=== PATIENT | female | born 1970 | race Caucasian/White ===

== ENCOUNTER 2025-03-10 02:50 | Inpatient (IN) | payer OTHER, SELFPAY ==
[2025-03-10] VITALS (52 sets, daily range): BP systolic 102–168; BP diastolic 68–109; BMI 34.7; BMI 32.8
[2025-03-10] MEDS: NITROSTAT (SUBLINGUAL) 0.4 MG SL (00:37)
[2025-03-10] MEDS: LOW STRENGTH ASPIRIN 324 MG PO (00:37)
[2025-03-10 01:05] LABS: % Basophils 0.7 % (0-2); % Eosinophils 2.1 % (0-6); % Immature Granulocytes 0.3 % (0-0.5); % Lymphocytes 35.6 % (20.5-51.1); % Monocytes 7.4 % (1.7-9.3); % Neutrophils 53.9 % (42.2-75.2); Absolute Basophils 0.1 10^3/uL (0-0.2); Absolute Eosinophils 0.2 10^3/uL (0-0.7); Absolute Lymphocytes 2.6 10^3/uL (1.2-3.4); Absolute Monocytes 0.5 10^3/uL (0.1-0.6); Absolute Neutrophils 3.9 10^3/uL (1.4-6.5); Hematocrit 37.6 % (37.0-47.0); Hemoglobin 13.6 g/dL (12.0-16.0); Mean Corp Hgb Conc. 36.2 g/dL (33.0-37.0); Mean Corpuscular Hgb 29.9 pg (27.0-31.0); Mean Corpuscular Volume 82.6 fL (81.0-99.0); Nucleated Red Blood Cells % 0 %; Platelet Count 243 10^3/uL (130-400); Red Blood Cell Count 4.55 10^6/uL (4.20-5.40); Red Cell Dist. Width 12.6 % (11.5-14.5); White Blood Cell Count 7.3 10^3/uL (4.8-10.8)
[2025-03-10 01:12] LABS: INR 1.01; PT 13.8 Sec (11.4-14.6)
[2025-03-10 01:13] LABS: ALT (SGPT) 11 U/L (0-35); APTT 27.2 Sec (23.4-35.0); AST (SGOT) 21 U/L (14-36); Albumin 4.3 g/dl (3.5-5.0); Alkaline Phosphatase 44 U/L (38-126); Blood Urea Nitrogen 12 mg/dl (7-17); Calcium 9.8 mg/dl (8.4-10.2); Carbon Dioxide 26 mmol/L (22-30); Chloride 107 mmol/L (98-107); Glucose 94 mg/dl (70-99); Potassium 3.8 mmol/L (3.5-5.1); Sodium 143 mmol/L (135-145); Total Protein 6.7 g/dl (6.3-8.2); eGFR > 60.00
--- NOTE | 2025-03-10 01:45 | ED.GENMED ---
History of Present Illness
<Holly Goezt PA-C - Last Filed: 03/10/25 03:12>
General
Chief Complaint: Chest Pain
Source: patient
Exam Limitations: none
Time Seen by Provider: 03/10/25 00:18
History of Present Illness
History of Present Illness:
54yoF with a history of type 2 diabetes on unro presenting for evaluation of chest pain. Patient was packing this evening to get ready for an upcoming move to [place]. She finished packing and was sitting on the couch watching TV when she had
a sudden onset of substernal chest discomfort. She states it feels like something is sitting on her chest. She also reports left arm heaviness and a funny sensation in her arm. She denies any associated diaphoresis, nausea, shortness of breath.
No prior history of heart disease.
Past History
<Holly Goetz PA-C - Last Filed: 03/10/25 03:12>
Past History
ED Past Medical History: HTN, Hypercholesterolemia and IDDM
ED Past Surgical History: (X 1) and Tonsilectomy
Social History
Tobacco: Non-smoker
Alcohol: Occasional
Personal:
Living: with family
Phy Exam
<Holly Goetz PA-C - Last Filed: 03/10/25 03:12>
General Physical Exam
General Presentation: mild distress
General Skin: warm and dry
General Habitus: normal
General Mental: alert and anxious
ENT Exam
ENT Exam: normocephalic
Cardiovascular Exam
Cardiovascular Exam: regular rate/rhythm, no edema and no murmur
Pulmonary Exam
Pulmonary Exam: lungs clear, no respiratory distress, no rales, no crackles, no rhonchi and no wheezing
Neurological Exam
Neurological Exam: alert
Greg Coma Scale
Eye Opening: Spontaneous
Verbal Response: Oriented
Motor Response: Obeys Commands
GCS Total Score: 15
Skin Exam
Skin Exam: normal color and warm/dry
Psychiatric Exam
Psychiatric Exam: anxious
Scores
<Holly Goetz PA-C - Last Filed: 03/10/25 03:12>
Heart Score for Chest Pain Patients
STEMI patient?: No
History: Highly Suspicious
ECG: Significant ST-Depression
Age: >45 - <65 years
Risk Factors: 1 or 2 Risk Factors
Troponin: >1 - <3 x Normal Limit
Heart Score for Chest Pain Patients: 7
Heart Score Risk: 72.7 % MACE over next 6 weeks
Course
<Holly Goetz PA-C - Last Filed: 03/10/25 03:12>
Orders/Labs/Results
Orders:
Orders
03/09/25 23:57
EKG [Electrocardiogram (*1)] Urgent
Reason for Study: Chest Pain
EKG- Treatment ONCE
03/10/25 00:25
Cardiac Monitoring- Treatment ONCE
Aspirin Chewable [Low Strength Aspirin] 324 mg PO NOW STA
Nitroglycerin Sublingual [Nitrostat (Sublingual)] 0.4 mg SL NOW STA
03/10/25 00:37
Complete Blood Count/With Diff Urgent
Comprehensive Metabolic Panel Urgent
PTT Urgent
Prothrombin Time Urgent
Troponin I Urgent
03/10/25 00:47
EKG [Electrocardiogram (*1)] Urgent
Reason for Study: Tachycardia
EKG- Treatment ONCE
03/10/25 00:49
CR Chest Portable - 1 View Urgent
Comment:
Reason For Exam: CP
Reason Study Needs to be Portable: Unable to Transport
03/10/25 01:47
Nitroglycerin Ointment [Nitro-Bid] 0.5 inch TOPICAL NOW STA
03/10/25 02:07
Heparin 4,000 units IV NOW STA
Nitroglycerin 100 mg/250 ml [Nitroglycerin Premix] 100 mg in 250 ml IV NOW
Initial dose in mcg/min, then titrate:: 5
Titrate to keep:: Chest Pain Free
Titrate by mcg/min:: 5 mcg/min, may increase by 10 mcg/min if dose > 20 mcg/min
Frequency of titrations (minutes):: every 3-5 minutes
Maximum dose in mcg/min:: 200
Begin to taper infusion when:: Remained at goal for 2hrs
Taper by mcg/min:: 5 mcg/min
Frequency of taper (minutes) if patient maintains goal:: 30
Taper to off?: Yes
If infusion off & no longer maintaining goal:: Contact Provider
03/10/25 02:[address] Non Medication Order As Directed
Physician Order: PTT 6 hours after initial start of Heparin infusion
03/10/25 02:11
Admit/Transfer Patient As Directed
Co-Sign Provider:
Level of Care: Inpatient admission
Assign to:: IVU
Physician / Group: hospitalist
Diagnosis: nstemi
Reason for Hospitalization: nstemi
Expected length of stay greater than two midnights?: Yes
ELOS- Estimated Length of Stay in days: 2
I certify the patient meets the requirements for IP care: Yes
Code Status As Directed
Resuscitation Status: Full Code
PRN Pain Medication Management As Directed
May give lesser potent ordered pain med per pt: Yes
preference::
Protocol:: Medication orders for pain may be administered in a
manner that supports deferring to patient preference
when the pt is:
- Requesting an ordered lesser potent pain medication.
Least to most potent pain medications are defined
as: acetaminophen < NSAID < tramadol < opioids
(morphine, oxycodone, hydromorphone).
- Requesting a lesser dose of the same medication IF
ORDERED.
- Requesting a less intrusive route of administration
if both routes are prescribed by the provider (PO <
IV).
03/10/25 02:15
Heparin 24141 Units/250 ml 25,000 units in 250 ml IV PER PROTOCOL
Weight to be used for heparin protocol in kilograms (kg):: 93
Protocol:: Cardiac Tx/Acute Coronary
PTT Goal Range to be used:: PTT 73 to 111 seconds
Order type:: Initial
INITIAL Infusion Dose (UNITS/KG/hr) & then follow protocol:: 12 units/kg/hr
Infusion Dose in UNITS/hr & then follow protocol (UNITS/hr):: 1,000
INFUSION RATE in mL/hr & then follow protocol (mL/hr):: 10
PTT less than or equal to 64 seconds:: Increase rate by 200 units/hr (+ 2 mL/hr)
PTT 64.1 to 72.9 seconds:: Increase rate by 100 units/hr (+ 1 mL/hr)
PTT 73 to 111 seconds:: Target Range. No change in rate.
PTT 111.1 to 130.9 seconds:: Decrease rate by 100 units/hr (- 1 mL/hr)
PTT 131 to 199.9 seconds:: HOLD for 1 hr. Then decrease rate by 200 units/hr (- 2 mL/hr)
PTT greater than or equal to 200 seconds:: HOLD for 2 hrs & Notify Provider. Then decrease by 200 units/hr (-
2 mL/hr)
Lab follow-up:: Each change, PTT q6h until 2 consecutive are therapeutic. Then PTT
daily.
03/10/25 03:00
Flush (0.9% Sodium Chloride) [Flush (Nss)] See Dose Instructions IV PER PROTOCOL
Abnormal Lab Results
03/10/25
00:37
Troponin I 0.160 H* ng/ml
03/10/25 00:37
03/10/25 00:37
Vital Signs
Initial and Last Documented VS:
Initial Vital Signs
Pulse Resp BP Pulse Ox
85 20 168/103 100
03/10/25 00:07 03/10/25 00:07 03/10/25 00:07 03/10/25 00:07
Last Documented Vital Signs
Pulse Resp BP Pulse Ox
93 18 165/90 99
03/10/25 02:30 03/10/25 02:30 03/10/25 02:00 03/10/25 02:30
<Darshana Vincent, DO - Last Filed: 03/10/25 03:04>
Orders/Labs/Results
Orders:
Orders
03/09/25 23:57
EKG [Electrocardiogram (*1)] Urgent
Reason for Study: Chest Pain
EKG- Treatment ONCE
03/10/25 00:25
Cardiac Monitoring- Treatment ONCE
Aspirin Chewable [Low Strength Aspirin] 324 mg PO NOW STA
Nitroglycerin Sublingual [Nitrostat (Sublingual)] 0.4 mg SL NOW STA
03/10/25 00:37
Complete Blood Count/With Diff Urgent
Comprehensive Metabolic Panel Urgent
PTT Urgent
Prothrombin Time Urgent
Troponin I Urgent
03/10/25 00:47
EKG [Electrocardiogram (*1)] Urgent
Reason for Study: Tachycardia
EKG- Treatment ONCE
03/10/25 00:49
CR Chest Portable - 1 View Urgent
Comment:
Reason For Exam: CP
Reason Study Needs to be Portable: Unable to Transport
03/10/25 01:47
Nitroglycerin Ointment [Nitro-Bid] 0.5 inch TOPICAL NOW STA
03/10/25 02:07
Heparin 4,000 units IV NOW STA
Nitroglycerin 100 mg/250 ml [Nitroglycerin Premix] 100 mg in 250 ml IV NOW
Initial dose in mcg/min, then titrate:: 5
Titrate to keep:: Chest Pain Free
Titrate by mcg/min:: 5 mcg/min, may increase by 10 mcg/min if dose > 20 mcg/min
Frequency of titrations (minutes):: every 3-5 minutes
Maximum dose in mcg/min:: 200
Begin to taper infusion when:: Remained at goal for 2hrs
Taper by mcg/min:: 5 mcg/min
Frequency of taper (minutes) if patient maintains goal:: 30
Taper to off?: Yes
If infusion off & no longer maintaining goal:: Contact Provider
03/10/25 02:[address] Non Medication Order As Directed
Physician Order: PTT 6 hours after initial start of Heparin infusion
03/10/25 02:11
Admit/Transfer Patient As Directed
Co-Sign Provider:
Level of Care: Inpatient admission
Assign to:: IVU
Physician / Group: hospitalist
Diagnosis: nstemi
Reason for Hospitalization: nstemi
Expected length of stay greater than two midnights?: Yes
ELOS- Estimated Length of Stay in days: 2
I certify the patient meets the requirements for IP care: Yes
Code Status As Directed
Resuscitation Status: Full Code
PRN Pain Medication Management As Directed
May give lesser potent ordered pain med per pt: Yes
preference::
Protocol:: Medication orders for pain may be administered in a
manner that supports deferring to patient preference
when the pt is:
- Requesting an ordered lesser potent pain medication.
Least to most potent pain medications are defined
as: acetaminophen < NSAID < tramadol < opioids
(morphine, oxycodone, hydromorphone).
- Requesting a lesser dose of the same medication IF
ORDERED.
- Requesting a less intrusive route of administration
if both routes are prescribed by the provider (PO <
IV).
03/10/25 02:15
Heparin 20004 Units/250 ml 25,000 units in 250 ml IV PER PROTOCOL
Weight to be used for heparin protocol in kilograms (kg):: 93
Protocol:: Cardiac Tx/Acute Coronary
PTT Goal Range to be used:: PTT 73 to 111 seconds
Order type:: Initial
INITIAL Infusion Dose (UNITS/KG/hr) & then follow protocol:: 12 units/kg/hr
Infusion Dose in UNITS/hr & then follow protocol (UNITS/hr):: 1,000
INFUSION RATE in mL/hr & then follow protocol (mL/hr):: 10
PTT less than or equal to 64 seconds:: Increase rate by 200 units/hr (+ 2 mL/hr)
PTT 64.1 to 72.9 seconds:: Increase rate by 100 units/hr (+ 1 mL/hr)
PTT 73 to 111 seconds:: Target Range. No change in rate.
PTT 111.1 to 130.9 seconds:: Decrease rate by 100 units/hr (- 1 mL/hr)
PTT 131 to 199.9 seconds:: HOLD for 1 hr. Then decrease rate by 200 units/hr (- 2 mL/hr)
PTT greater than or equal to 200 seconds:: HOLD for 2 hrs & Notify Provider. Then decrease by 200 units/hr (-
2 mL/hr)
Lab follow-up:: Each change, PTT q6h until 2 consecutive are therapeutic. Then PTT
daily.
03/10/25 03:00
Flush (0.9% Sodium Chloride) [Flush (Nss)] See Dose Instructions IV PER PROTOCOL
Abnormal Lab Results
03/10/25
00:37
Troponin I 0.160 H* ng/ml
03/10/25 00:37
03/10/25 00:37
Vital Signs
Initial and Last Documented VS:
Initial Vital Signs
Pulse Resp BP Pulse Ox
85 20 168/103 100
03/10/25 00:07 03/10/25 00:07 03/10/25 00:07 03/10/25 00:07
Last Documented Vital Signs
Pulse Resp BP Pulse Ox
93 18 165/90 99
03/10/25 02:30 03/10/25 02:30 03/10/25 02:00 03/10/25 02:30
<Holly Goetz PA-C - Last Filed: 03/10/25 03:12>
MDM/Problems Addressed
Differential Diagnosis Includes:
54yoF here with central chest pressure and L arm heaviness that began 1 hour [employer]. Hx of T2DM and family history of CAD. She is mildly hypertensive with otherwise stable vital signs. She is anxious on exam. Differential diagnosis includes but is
not limited to: Angina, ACS, GERD, doubt but consider aortic dissection
Initial ED plan: EKG obtained in triage shows ST/T wave changes in anterior leads. No ST elevations noted. Check cardiac labs and chest x-ray. Aspirin and nitroglycerin for symptoms.
<Holly Goetz PA-C - Last Filed: 03/10/25 03:12>
*EKG
Interpreted by ED Provider?: Yes
EKG Intrepretation Date: 03/10/25
Heart Rate: 88
Rate: normal
Rhythm: sinus
[place]: normal axis
Interval: normal interval
Ischemia: ST depression (ST/T wave changes in inferior and anterior leads. No prior EKGs to compare to.)
*Critical Care Note
Total Time (30-74mins, 75-104mins- exclusive of procedures): 35
<Holly Goetz PA-C - Last Filed: 03/10/25 03:12>
Update Note
Update Note:
Troponin elevated at 0.16. Patient did become lightheaded after receiving nitroglycerin. Vitals remained stable and repeat EKG unchanged. Patient feeling improved on reassessment although continues to have 5/10 chest pain. Cardiology team
notified. Heparin and nitroglycerin infusions ordered. Patient admitted for further management.
ED Attending Note
<Holly Goetz PA-C - Last Filed: 03/10/25 03:12>
-
Portions of this chart may have been created with voice recognition software.� Occasional wrong word or��sound alike� substitutions may have occurred due to the inherent limitations of voice recognition software.
<Darshana Vincent DO - Last Filed: 03/10/25 03:04>
ED Attending Note
Patient seen and examined by attending physician: Yes
I performed a history and physical exam of patient and discussed management with resident, I reviewed resident's note and agree with documented findings and plan of care.: Yes
ED Attending Note:
54-year-old woman with history of hypertension, hyperlipidemia, vly-gfezcqy-epotrmeas diabetes presents with acute onset of substernal chest pain radiating to her left arm. No history of similar episodes in the past.
Initial EKG shows normal sinus rhythm, subtle ST downsloping anteriorly in V2 V3 as well as minimally in [address] segment elevation. No old EKGs to compare.
54-year-old woman appears her stated age, awake and alert, mildly anxious, easily communicative.
Heart is regular rate and rhythm.
Lungs are clear to auscultation.
Patient certainly has risk factors for CAD and history is quite concerning for angina.
Moderate improvement after 1 sublingual nitroglycerin and 324 mg chewable aspirin.
Initial troponin 0.160. Concern for non-STEMI. Will continue to trend troponin.
Portable chest x-ray is unremarkable.
Will plan for IV heparin bolus and drip and recommend additional nitroglycerin.
Patient noted moderate lightheadedness without evidence of hypotension with initial sublingual nitroglycerin thus recommend initiation of nitro drip.
Cardiology as well as hospitalist have been notified.
Discharge Plan
Departure
Patient Disposition: Admit
Date of Disposition: 03/10/25
Time of Disposition: 01:51
Presentation/result/management discussed w/ accepting MD/DO: Hospitalist
Discharge Problem:
Non-ST elevation [place] (NSTEMI)
Interventions
Interventions:
*Risk Screen - Suicide Last Done: 03/10/25 00:07
*General Assessment Last Done: 03/10/25 00:07
*Neglect/Abuse Screening Last Done: 03/10/25 00:07
*ED- Fall Risk Assessment Last Done: 03/10/25 01:57
*ED COVID-19 Vaccine History Last Done: 03/10/25 00:07
ED- Cardiac Assessment Last Done: 03/10/25 02:10
--- NOTE | 2025-03-10 02:27 | HPS.HSE ---
Family Physician
-
Family Physician: NOT KNOW UNKNOWN - PT DOES
Chief Complaint
-
Chest pain
History of Present Illness
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
Patient reports that recently she has been stressed due [place]. She reported that at around 10 PM she had substernal chest pain tightness. She did not think much of it. However several minutes later she reported worsening of the
chest pain and weakening of her right upper extremity. She denies any tingling or numbness. She reports is a heaviness in the right hand. She denies nausea vomiting or diaphoresis. She denies having any palpitations lightheadedness or dizziness.
Patient denies any prior history of exertional chest pain or exertional dyspnea. She reports her family history with her mother with CAD in her 40s.
She reported that her pain improved after arriving in the ED and getting a dose of sublingual nitroglycerin. It was initially a 8 out of 10. Currently 2 out of 1:10 dose of sublingual nitroglycerin.
In the emergency department she was hypertensive to the 160s systolic, pulse rate was 80s respirate 16 she was satting 88% on room air.
ECG shows a normal sinus rhythm at rate of 85. No acute ST-T wave changes. Troponin was 0.16. Chest x-ray was clear. CBC was unremarkable, electrolytes, BUN, creatinine were all normal.
Medical History
Past Medical History
Past Medical History: Reports Seizures (History of petit mall seizure in childhood)
Past Surgical History: Reports , Tonsilectomy and Other (Expiratory laparoscopy for abdominal pain)
Social History
Tobacco: Non-smoker
Alcohol: Occasional
Drug: None
Personal:
Living: With Family
Employment: Employed
Family History
Family History: Not pertinent
Allergies / Home Medications
Allergies reflects when Allergies were last updated in [facility].
Home Medications with original date entered in [facility]
Allergy/Medication List:
Allergies
Allergy/AdvReac Type Severity Reaction Status Date / Time
phenytoin [From Dilantin] Allergy Unknown Verified 03/10/25 00:07
Home Medications
acetaminophen 500 mg tablet 1,000 mg PO QID PRN pain 03/10/25
ascorbic acid (vitamin C) 250 mg tablet (Vitamin C) 250 mg PO DAILY 03/10/25
ferrous sulfate 325 mg (65 mg iron) tablet (iron) 325 mg PO DAILY 03/10/25
lamotrigine 200 mg tablet (Lamictal) 250 mg PO HS 03/10/25
multivitamin 1 tab PO DAILY 03/10/25
vitamin B complex 1 cap PO DAILY 03/10/25
Review of Systems
-
History Source: Patient
Constitutional: Reports No Symptoms
EENT: Reports No Symptoms
Respiratory: Reports No Symptoms
Cardiac: Reports Chest Pain
Abdomen/GI: Reports No Symptoms
: Reports No Symptoms
Musculoskeletal: Reports No Symptoms
Skin: Reports No Symptoms
Neurological: Reports No Symptoms
Endocrine: Reports No Symptoms
Hematologic/Lymphatic: Reports No Symptoms
Psych: Reports No Symptoms
Physical Exam
Vital Signs
Vital Signs
Pulse Resp BP Pulse Ox
85 13 165/90 98
03/10/25 02:00 03/10/25 02:00 03/10/25 02:00 03/10/25 01:49
Physical Exam
General: Well Developed, Well Nourished, Comfortable and Conversant
HEENT: NormoCephalic, Anicteric, Moist mucous membranes and Atraumatic
Respiratory: Clear
Cardiac: S1/S2 and Regular Rhythm
Breast: Deferred by me
GI: Soft, Non Tender, Non Distended and Normal Bowel Sounds
Rectal: Deferred by Provider
Genito-urinary: Deferred by me
Musculoskeletal: No Clubbing, No Cyanosis and No Edema
Skin: Warm
Neuro: AO x 3 and Nonfocal/grossly intact
Hematologic/Lymphatic: No Lymphadenopathy
Psych: Calm
Laboratory Results
-
03/10/25 00:37
03/10/25 00:37
Laboratory Results
PT 13.8 Sec (11.4-14.6) 03/10/25 00:37
INR 1.01 03/10/25 00:37
APTT 27.2 Sec (23.4-35.0) 03/10/25 00:37
Total Bilirubin 1.0 mg/dl (0.2-1.3) 03/10/25 00:37
AST 21 U/L (14-36) 03/10/25 00:37
ALT 11 U/L (0-35) 03/10/25 00:37
Alkaline Phosphatase 44 U/L (38-126) 03/10/25 00:37
Troponin I 0.160 ng/ml H* 03/10/25 00:37
Data Reviewed
-
Diagnostic Radiology: Image Personally Visualized and interpreted
Medical Tests (Nuc Med, Echo, EKG etc): Image Personally Visualized and interpreted
Lab Data: Labs Reviewed by me
Old Records: Reviewed
Impression/Plan
-
IMPRESSION:
54-year-old female with no significant past medical history noted and child who. More seizures presenting to the emergency department with few hours of substernal chest pain radiating to the right hand with right arm heaviness that was relieved
after sublingual nitroglycerin. ECG is nonischemic. Troponin is elevated. Patient has NSTEMI by definition. Pain is currently 2 out of 10. She is hemodynamically stable and in no acute distress. No prior history of CAD. Positive family
history of CAD.
PLAN:
1. NSTEMI -
- admit to ivu
- npo for now
- asa 324, heparin gtt
- started nitroglycerin gtt
- echo in am
- cardiovascular panel and a1c
- antiemetics prn
- continue with pain control so long as ECG is unchanged.
- cardiology consulted and notified.
Code status - Full Code
[2025-03-10] MEDS: HEPARIN 4000 UNITS IV (02:45)
[2025-03-10] MEDS: HEPARIN 25000 UNITS/250 ML IV (03:05)
[2025-03-10] MEDS: NITROGLYCERIN PREMIX 250 IV (03:13)
[2025-03-10] MEDS: TYLENOL 650 MG PO ×2 (04:46→19:52)
--- NOTE | 2025-03-10 05:34 | PTCARENOTE ---
Pt admit from ED. HR SR on telemetry. Hep and nitro gtts as ordered. Pt rates CP 0/10. Denies any lightheadedness/dizziness, SOB, or n/v. EKG done as ordered. Oriented pt and to unit/hospital. CAD booklet given to pt. Reinforced NPO status w
pt. Pt states understanding. Call esposito within reach.
[2025-03-10 06:17] LABS: Blood Urea Nitrogen 10 mg/dl (7-17); Calcium 9.3 mg/dl (8.4-10.2); Carbon Dioxide 23 mmol/L (22-30); Chloride 110 mmol/L (98-107); Estimated Creatinine Clearance 102 ml/min; Glucose 100 mg/dl (70-99); HDL Cholesterol 42 mg/dl; LDL Cholesterol, Calculated 96 mg/dl; Potassium 3.9 mmol/L (3.5-5.1); Sodium 142 mmol/L (135-145); Total Cholesterol 150 mg/dl (50-199); Triglyceride 61 mg/dl (10-149); Very Low Density Lipoprotein 12 mg/dl (0-30); eGFR > 60.00
--- NOTE | 2025-03-10 08:07 | CON.CAR ---
Addendum entered and electronically signed by Aurea Leigh MD 03/10/25 10:36:
I saw and examined the patient.
The PROP MAKING SUPERVISOR's note was reviewed and I agree with the note.
Comment:54-year-old female with a past medical history of diabetes type 2, family history of premature coronary artery disease presented for chest heaviness radiating down the arm. It was intermittent throughout the day yesterday and then became
sustained last night prompting her to seek medical care. Pain was eventually relieved with nitroglycerin. Troponin has trended up to 1.52. Initially EKG showed nonspecific ST abnormalities that have normalized. She is now feeling well chest
pain-free. On exam she has a regular rate and rhythm with a normal S1-S2 no murmurs or gallops were appreciated lungs were clear to auscultation distal pulses were 2+ and intact. She is alert and oriented x 3. Overall, concern is for ACS/NSTEMI.
We will get an echo. We need to proceed to cardiac catheterization which she is agreeable to. Continue aspirin and heparin drip for now. High-dose statin added. Goal LDL will become less than 55. Management of her diabetes per the primary care
team. Continue telemetry monitoring during this high risk situation that is a threat to her life.
Original Note:
Consultation
Consultation Request
Date/Time Consultation Requested: 03/10/25410
Date/Time Consultation Performed: 03/10/25 0808
Requesting Provider: Dr. Lopez
Performing Provider: Minerva WARNER for Dr. Leigh
Reason for Consultation: NSTEMI
Medical History
-
Chief Complaint: chest discomfort
History of Present Illness:
54 y/o female with remote hx petit mal seizures, DM2 on Mounjaro, and depression who is here for evaluation of midsternal chest pressure with radiation down left arm (heavy feeling). Ir started last night around 9-9:30 PM while she was watching TV.
After about 1.5 hours of this she came to the ER. EKG showed ST abnormalities anteriorly. Trop elevated 0.16, then up to 1.52. She was given full dose aspirin and placed on heparin and nitro drips. She is now off the nitro drip and is CP free.
Past Medical History
Past Medical History: NIDDM, Seizures and Psychiatric (depression)
Social History
Tobacco: Non-Smoker
Alcohol: Occasional
Drug: None
Family History
Family History: CAD (mom had bypass surgery in her 60's)
Allergies / Home Medications
Allergy/AdvReac Type Severity Reaction Status Date / Time
phenytoin [From Dilantin] Allergy Unknown Verified 03/10/25 00:07
�Medication �Instructions �Recorded �Confirmed �Type
acetaminophen 500 mg tablet 1,000 mg PO QID PRN pain 03/10/25 03/10/25 History
ascorbic acid (vitamin C) 250 mg 250 mg PO DAILY 03/10/25 03/10/25 History
tablet (Vitamin C)
ferrous sulfate 325 mg (65 mg 325 mg PO DAILY 03/10/25 03/10/25 History
iron) tablet (iron)
lamotrigine 200 mg tablet 250 mg PO HS 03/10/25 03/10/25 History
(Lamictal)
multivitamin 1 tab PO DAILY 03/10/25 03/10/25 History
vitamin B complex 1 cap PO DAILY 03/10/25 03/10/25 History
Review of Systems
-
History Source: Patient
All other systems: Negative unless noted
Cardiac: Chest Pain
Physical Exam
Vital Signs
Temp Pulse Resp BP Pulse Ox
97.9 F 82 18 124/80 95
03/10/25 07:47 03/10/25 06:30 03/10/25 04:01 03/10/25 06:00 03/10/25 06:30
Lab Results
03/10/25 00:37
03/10/25 05:00
Troponin I 1.520 ng/ml H* D 03/10/25 05:00
Physical Exam
General: Well Developed, Well Nourished and No Apparent Distress
HEENT: Normocephalic and Anicteric
Respiratory: Clear and Non Labored Respirations
Cardiac: Regular Rhythm
Musculoskeletal: No Edema
Skin: Warm and Dry
Neuro: AO x 3
Psych: Calm
Impression / Plan
-
NSTEMI:
-this diagnosis is threat to life. CP free at this time.
-Full dose ASA given. Continue IV heparin, which requires intensive monitoring.
-cardiac cardiovascular lab director today- discussed with patient, who is agreeable
-add statin, LDL 96 with goal <55 if CAD noted. Patient also with DM2.
-check echo
-trend trops to peak
DM2:
-hgbA1C pending
-on Mounjaro as OP
-management per primary
Depression:
-on Lamictal for this per patient
Data Reviewed
-
EKG: Tracing Personally Visualized and interpreted (SR with ST and T abnormalities anteriorly)
Radiology: Report Reviewed by me (CXR: No acute cardiopulmonary process.)
Medical Tests (Nuc Med, Echo etc): Other (echo ordered)
Labs: Labs Reviewed by me
Scores
DILIA for NSTEMI
Age >/= 65: No
>/=3 CAD risk factors-HTN,High Chol,Fam hx CAD,DM,Smoker: No
Known CAD (stenosis >/=50%): No
ASA use in past 7 days: No
Severe angina (>/= 2 episodes in 24 hrs): No
EKG ST Changes >/= 0.5mm: Yes
Positive cardiac marker: Yes
Score: 2
Risk at 14 days-mortality, new/recurrent MA, severe ischemia: Low Risk- 8% Risk at 14 days- all cause mortality, new or recurrent MA, or severe recurrent ischemia requiring urgent revascularization
[2025-03-10] MEDS: LOW STRENGTH ASPIRIN 81 MG PO (08:55)
[2025-03-10] MEDS: FEOSOL 325 MG PO (08:55)
[2025-03-10 10:18] LABS: APTT 181.7 Sec (23.4-35.0)
[2025-03-10 10:51] LABS: Glycohemoglobin (HgbA1c) 4.5 % (4.0-5.6)
--- NOTE | 2025-03-10 11:44 | W.PN.UPDATE ---
Update Note
Progress Note Update
Nonbillable note
1. Chest pain, NSTEMI, Trop elevation -troponin trending upwards, last 3.5. On heparin drip. Patient was given nitro and chest pain was better although reoccurring and cardiology has requested resumption of nitro. Patient is planned to get heart
cath today versus tomorrow. Echocardiogram showing normal ventricular function and no regional wall motion defect. Lipid profile reviewed, total cholesterol 150 LDL 96. A1c of 4.5
2. Elevated BP -no formal diagnosis of hypertension, not on any blood pressure medication. Monitor
3. H/o seizures - on lamicatal, continue.
--- NOTE | 2025-03-10 12:36 | PTCARENOTE ---
Episode of recurrent chest pain low pain rating, pressure sensation as described per pt. EKG done per protocol, results sent to Cardiology DOCK CLERK/Hospitalist. Orders to resume Nitro gtt.
--- NOTE | 2025-03-10 14:17 | PTCARENOTE ---
Pt. taken to [facility] for [facility].
--- NOTE | 2025-03-10 14:30 | CM ---
Addendum entered by Melissa Cabrales 03/10/25 15:45:
Patient and , nursing updated.
Addendum entered by Melissa Cabrales 03/10/25 15:25:
CM called to obtain information regarding Brillinta;uncertain recommended strength. per patient [facility] both 60mg and 90mg are 75$ for 30 days.
Original Note:
Patient and seen at bedside in ICU. Patient confirmed with that they live in a w story home with 3 steps to enter. Patient and in process of moving to [place] and were to have gone down to look at homes this weekend.
Patient PCP is from [facility]. Patient goes to [facility] in [place]. Patient has been independent of adl's and iadl's prior to admission. Patient plan is for home with no needs. CM will continue to follow for discharge planning needs.
Plan; home with no needs pending medical treatment plan/ assessment
--- NOTE | 2025-03-10 15:26 | ITS.CL.ANGIO ---
[employer] Platemaker - Angioplasty
Angioplasty
Procedure Report:
CARDIAC CATHETERIZATION REPORT
Date of Procedure: 03/10/2025
Referring: Radha Leigh M.D.
INDICATION: Non-ST elevation myocardial infarction.
PROCEDURE:
1. Left heart catheterization.
2. Coronary angiography.
3. IFR of the proximal LAD.
4. Intravascular ultrasound.
5. Successful PCI of the proximal LAD.
A total of 73 minutes of procedural/moderate sedation was utilized. An independent medical professionals was present to assist with and help manage the patient's level of consciousness and physiologic status.
ACCESS:
1. 6 Tunisian right common femoral artery using a modified Seldinger technique with a micropuncture kit under ultrasound guidance. Ultrasound image obtained.
CATHETERS:
1. 5 [place]ian JR4.
2. 5 Tunisian JL 3.5.
3. 6 Tunisian JL 4 guiding catheter.
HEMODYNAMIC DATA
Weight (kg): 87.5
AO (s/d/x, mmHg): 150/91/117
LV (s/x mmHg): 153/12
LEFT VENTRICULOGRAPHY: Not performed.
CORONARY ANGIOGRAPHY
Dominance: Right.
Left Main: Extremely short/cloacal, bifurcating vessel.
LAD: Large size vessel giving rise to several small diagonals before wrapping around the apex. There is a 70% lesion in the proximal vessel.
Ramus: Congenitally absent.
Circumflex: Normal size, nondominant vessel giving rise to 2 obtuse marginals. There is no coronary artery disease.
RCA: Normal size, dominant vessel. There is modest ostial tapering.
INTERVENTION(S)
1. Successful IFR of the 70% proximal LAD lesion, demonstrating occlusive disease (IFR = 0.76).
2. Successful IVUS guided PCI of the 70% proximal LAD lesion ([employer]tronic [place] 3.5 x 15 ALYSE, postdilated with a 3.5 NC balloon throughout and a 4.0 x 8 NC balloon in the proximal margin) with reduction in stenosis to 0%, maintaining DILIA-3
flow.
Narrative:
The decision was made to perform physiologic testing. The diagnostic catheter was removed over a wire and exchanged for a(n) 6 Tunisian JL 4 guiding catheter. The guiding catheter was advanced into the ascending aorta and seated in the left main
coronary artery. Additional heparin was given to obtain an ACT greater than 250 seconds. An iFR wire was zeroed outside of the body, then inserted into the guiding sheath. The wire was advanced and the transducer was normalized just outside of the
guiding catheter tip. The wire was advanced into the mid LAD. Three iFR measurements were taken. The lesion was determined to be occlusive (0.76).
The decision was made to proceed with percutaneous coronary intervention. A Power Turn Flex wire was advanced into the distal LAD and the IFR wire was withdrawn. The 70% proximal LAD lesion was predilated with a 3.0 x 15 semi-compliant balloon to 12
jaspal.
The decision was made to perform intracoronary imaging. An IVUS catheter was advanced through the guiding catheter and into the ostium of the artery. Ring down was performed once the imaging crystal was no longer inside of the guiding catheter. The
IVUS catheter was advanced into the mid LAD. Intravascular ultrasound was performed in a retrograde fashion using a slow pullback. Intracoronary imaging demonstrated severe atherosclerotic/fibrous stenosis of the proximal LAD. Vessel measurements
were obtained.
The IVUS catheter was removed and a Medtronic [place] 3.5 x 15 drug-eluting stent was advanced. The stent was deployed at 12 atmospheres. The stent balloon was removed. A 3.5 x 12 noncompliant balloon was advanced into the stent and the stent
was postdilated to 15 atmospheres. The noncompliant balloon was withdrawn and a 4.0 x 8 noncompliant balloon was advanced. The proximal edge of the stent was postdilated to 12 jaspal. The noncompliant balloon was removed.
IVUS was repeated showing good stent apposition and expansion throughout the entire stented segment with no evidence of william-stent vessel disruption. The IVUS catheter was withdrawn.
Angiography was performed in orthogonal views, confirming good stent expansion and an excellent angiographic result. The coronary wire was withdrawn and the guide was disengaged from the artery. The catheter was removed over a standard J-wire.
Closure Device: None. The sheath was sutured in place to be pulled when ACT is <180 seconds.
Radiation (mGy): 755.92
DAP (cm2.Gy): 45.9696
Fluoroscopy time (minutes): 11.9
CONCLUSIONS
1. Right dominant circulation with ostial tapering of the RCA, a cloacal left main and a surprisingly occlusive 70% proximal LAD lesion (IFR = 0.76) status post successful IVUS guided PCI ([employer]tronic [place] 3.5 x 15 ALYSE, postdilated with a
3.5 NC balloon throughout and a 4.0 x 8 NC balloon in the proximal margin) with reduction in stenosis to 0%, maintaining DILIA-3 flow.
2. Normal filling pressures (LVEDP = 12 mmHg at 87.5 kg).
RECOMMENDATIONS:
1. Expectant management after cardiac catheterization via right common femoral approach.
2. Limited weight bearing for one week.
3. Dual antiplatelet therapy with aspirin and ticagrelor for at least 12 months, followed by aspirin indefinitely.
4. Aggressive secondary prevention with high-dose, high potency statin. Goal LDL <55.
5. OMT/GDMT as hemodynamics will tolerate.
6. Referral to cardiac rehab.
Copy to: Radha Leigh M.D.
David Madison DO, FACC, FACP
--- NOTE | 2025-03-10 15:51 | PTCARENOTE ---
Pt. arrived back from lab clerk.
Fem art sheath remains in place. ACT to high in lab clerk to remove, lab clerk following.
Hemodynamically stable, no pain, site/pulse checks intact.
--- NOTE | 2025-03-10 16:45 | PTCARENOTE ---
manufacturing lab technician bedside to check ACT, still elevated sheath remains in place at this time.
[2025-03-10] MEDS: CRESTOR 20 MG PO (19:52)
[2025-03-10] MEDS: MORPHINE SULFATE 2 MG IV (20:27)
--- NOTE | 2025-03-10 20:56 | PTCARENOTE ---
Addendum entered by Ramonita Bedoya RN 03/10/25 22:46:
Morphine only had effect for a short time then pain returned. She is also reporting chest pain that feels bruised or like she was in car accident. Pt. reports she notified Dr Madison of this post procedure. TIMMY Wilkerson also notified who came to
bedside. Lidocaine patch ordered for her back. Pt. wishes to wait to put patch on until she can move around more in bed, which is around 0000. Monitoring closely
Original Note:
Received pt resting in bed, AAOx3, c/o low back pain from being flat in bed most of the day. Tylenol given but about 30 min later, pt in severe pain - morphine given with good effect. Pt resting calmly, dozing off. NSR on tele, HR 80s. BP
120s-140s/90s. + DP pulses. R groin dsg c/d/i after sheath was pulled on . Soft, no evidence of hematoma. Tender to palpation. Neurovasc checks ongoing. On RA, spo2 97%. Lungs CTA. + bowel sounds. #20 L AC patent and capped. Monitoring
[2025-03-10] MEDS: LAMICTAL 50 MG PO (22:28)
[2025-03-10] MEDS: LAMICTAL 200 MG PO (22:29)
[2025-03-10] MEDS: LIDOCAINE 4% PATCH 1 PATCH TOPICAL (23:00)
[2025-03-10] MEDS: ULTRAM 25 MG PO (23:35)
[2025-03-11] VITALS (29 sets, daily range): BP systolic 79–143; BP diastolic 67–87; BMI 32.8
--- NOTE | 2025-03-11 00:13 | PTCARENOTE ---
Pt. c/o severe low back pain that feels like it starts at her spine and radiates to the sides. TIMMY Wilkerson notified. Tramadol and K pad ordered. Lidocaine patch was applied around 2300 and pt did not feel it was helping her at all so she
requested it be removed. K pad applied. Assisted pt to lay on her side, which she reports is helping pain some.
[2025-03-11] MEDS: ULTRAM 50 MG PO (04:08)
--- NOTE | 2025-03-11 04:24 | PTCARENOTE ---
Assisted pt to bedside commode to void. Minimal assist but pt. slow to move due to back pain/stiffness. Pt states pain improved since being able to move a little bit more, heating pad and tramadol. Assisted with CHG bath. Pt. has been on 3L NC
overnight for comfort, which pt states is helping her pain.
R groin dsg c/d/i, soft. Pt. complained of some pain/pulling sensation while getting up. Neurovasc checks unchanged.
[2025-03-11 04:55] LABS: Hematocrit 35.9 % (37.0-47.0); Hemoglobin 12.9 g/dL (12.0-16.0); Mean Corp Hgb Conc. 35.9 g/dL (33.0-37.0); Mean Corpuscular Hgb 29.7 pg (27.0-31.0); Mean Corpuscular Volume 82.5 fL (81.0-99.0); Mean Platelet Volume 10.1 fL (7.4-10.4); Platelet Count 245 10^3/uL (130-400); Red Blood Cell Count 4.35 10^6/uL (4.20-5.40); Red Cell Dist. Width 12.6 % (11.5-14.5); White Blood Cell Count 7.6 10^3/uL (4.8-10.8)
[2025-03-11 05:13] LABS: Blood Urea Nitrogen 6 mg/dl (7-17); Calcium 8.8 mg/dl (8.4-10.2); Carbon Dioxide 19 mmol/L (22-30); Chloride 109 mmol/L (98-107); Estimated Creatinine Clearance 102 ml/min; Glucose 107 mg/dl (70-99); Magnesium 1.8 mg/dl (1.6-2.3); Potassium 4.3 mmol/L (3.5-5.1); Sodium 139 mmol/L (135-145); eGFR > 60.00
--- NOTE | 2025-03-11 08:18 | W.PN.CD ---
Today's Communication / Plan
-
DAPT.
Case management consult for ticagrelor.
Vascular US to r/o pseudoaneuysm.
Ambulate.
Discharge planning (late today vs. tomorrow depending on her ability to ambulate/perform ADL's).
Impression / Plan
-
Impression/Plan: 54 y/o female with NIDDM admitted with NSTEMI.
#NSTEMI:
-Acute, threat to life.
-Troponin peaked at 3.840.
-S/P cardiac catheterization and IVUS guided PCI of an occlusive 70% pLAD lesion (iFR = 0.76, Medtronic [place] 3.5 x 15 ALYSE, post dilated with a 3.5 NCB throughout, 4.0 x 8 NCB in the proximal margin).
-DAPT with aspirin and ticagrelor. Case management consult.
-Continue rosuvastatin 20 mg daily. Goal LDL < 55.
-Echo shows preserved systolic function.
-Cardiac rehab consult.
-Ambulate.
-Femoral access site is tender. H/H stable. Check US to r/o pseudoaneurysm.
#NIDDM2:
-Chronic, stable/controlled.
-HbA1c = 4.5% (!).
-Resume tirzepatide as an outpatient.
#Depression:
-Chronic, stable.
-Continue home lamitrogine.
#Dispo
-D/C planning.
Subjective/Interval History:
Cardiac catheterization shows surprisingly obstructive pLAD lesion (70% on angiography, iFR = 0.76).
Now s/p IVUS guided PCI to pLAD. Nitroglycerin titrated off. Heparin discontinued.
Cath showed high bifurcation of the RCFA, removing the ability to use and internal closure device. Manual pressure was held after sheath removed.
Because of the sheath, she was forced to lay flat for a significant amount of time, exacerbating low back pain.
This was treated with lidocaine patch, warm compresses and morphine x1. She did have improvement when she was able to move.
SaO2 98% on 3LNC (for comfort).
DATA:
Transthoracic Echocardiogram, 03/10/2025:
CONCLUSIONS
Normal biventricular size and systolic function without regional wall motion
abnormality.
No significant valvular disease.
No prior study available for comparison.
Cardiac Catheterization/PCI, 03/10/2025:
CONCLUSIONS
1. Right dominant circulation with ostial tapering of the RCA, a cloacal left main and a surprisingly occlusive 70% proximal LAD lesion (IFR = 0.76) status post successful IVUS guided PCI (Medtronic [place] 3.5 x 15 ALYSE, postdilated with a
3.5 NC balloon throughout and a 4.0 x 8 NC balloon in the proximal margin) with reduction in stenosis to 0%, maintaining DILIA-3 flow.
2. Normal filling pressures (LVEDP = 12 mmHg at 87.5 kg).
Physical Exam
Vital Signs/Labs
Vital Signs
Temp Pulse Resp BP Pulse Ox
36.6 C 71 18 111/69 98
03/11/25 07:32 03/11/25 07:00 03/10/25 04:01 03/11/25 07:00 03/11/25 08:09
03/09/25 03/10/25 03/11/25
11:59 11:59 11:59
Actual Weight 87.9 kg 88 kg
03/11/25 04:20
03/11/25 04:20
PT 13.8 Sec (11.4-14.6) 03/10/25 00:37
INR 1.01 03/10/25 00:37
APTT Cancelled 03/10/25 15:16
Magnesium 1.8 mg/dl (1.6-2.3) 03/11/25 04:20
Triglycerides 61 mg/dl (10-149) 03/10/25 05:00
LDL Cholesterol, Calc 96 mg/dl 03/10/25 05:00
VLDL Cholesterol, Calc 12 mg/dl (0-30) 03/10/25 05:00
HDL Cholesterol 42 mg/dl 03/10/25 05:00
LAB Results
03/10/25 03/10/25 03/10/25
00:37 05:00 08:48
Troponin I 0.160 H* 1.520 H* D 3.500 H* D
03/10/25 03/10/25 03/10/25
10:11 15:16 21:13
Troponin I Cancelled 3.840 H* 3.240 H*
Physical Exam
Constitutional: No acute distress and Comfortable
EENT: Anicteric and Moist mucous membranes
Cardiovascular: Rhythm & rate is regular, Pedal edema is absent, JVD pressure is normal, S1S2 is normal and Murmur/rub/gallop absent
Respiratory: Respiratory effort normal, Lungs clear to auscul., Wheeze Absent, Crackles Absent and Rhonchi Absent
GI: Soft, Distention absent, Flat, Non tender and Normal bowel sounds
Neuro/Psych: AO x 3
Other: Cath Site (Right femoral access site is C/D/I, though tender to palptation.)
Data Reviewed
-
Date of Service: March 11, 2025
Medical Decision Making: Reviewed Test Results, Independent Historian Assessment and Test Interpretation
EKG: Tracing Personally Visualized and interpreted and Report Reviewed by me
Echo: Tracing Personally Visualized and interpreted and Report Reviewed by me
X-Ray/CT/US/MRI/NUC/PET: Image Personally Visualized and interpreted and Report Reviewed by me
Medical Tests (PFT, Pathology etc): Image Personally Visualized and interpreted, Report Reviewed by me, Discussed with Nurse, Discussed with Patient and Discussed with Family
Labs: Labs Reviewed by me
[2025-03-11] MEDS: BRILINTA 90 MG PO ×2 (09:08→19:30)
[2025-03-11] MEDS: FEOSOL 325 MG PO (09:08)
[2025-03-11] MEDS: LOW STRENGTH ASPIRIN 81 MG PO (09:09)
--- NOTE | 2025-03-11 09:35 | PTCARENOTE ---
Pt. resting in bed, reports improvement in her back pain. Heating pad remains in place, skin intact.
All questions answered awaiting to speak with physicians on further plan of care.
--- NOTE | 2025-03-11 10:14 | CM ---
Cardiac cath done 03/10/2025.
CM asked to [facility] for Brilinta for patient. [facility] covers generic for $1 copay; brand is $3 copay.
[employer] copay for medications is $75 for 30 day supply.
[2025-03-11] MEDS: TYLENOL 650 MG PO ×2 (11:28→19:30)
--- NOTE | 2025-03-11 12:30 | PTCARENOTE ---
Pt. having increased pain in groin site. Groin US for PSA. Pt. requested lower dose pain medication prior to other medications. Pain rating 9/10. Tylenol given per pt. request.
[2025-03-11] MEDS: SUBLIMAZE 25 MCG IV (15:17)
--- NOTE | 2025-03-11 15:31 | PTCARENOTE ---
Pt. now in IRAD.
Premedicated w. 25 fentanyl, per Dr. Madison ok to give dose off ordered reason.
--- NOTE | 2025-03-11 16:09 | W.PN.HOSP.TC ---
Today's Communication/Plan
-
fem art thrombin inj
continue other meds
monitor overnight
Assessment / Plan
Assessment / Plan
1. Chest pain
NSTEMI
Trop elevation
-Elevated trops upward of 3.5 at admission
-Echocardiogram showing normal ventricular function and no regional wall motion defect.
-Lipid profile reviewed, total cholesterol 150 LDL 96. A1c of 4.5
-Left heart catheterization done showing LAD stenosis which was stented with ALYSE
-Patient to be maintained on dual antiplatelet therapy with asa/brillanta. also started on crestor with [facility] findings.
2. Right femoral artery pseudoaneurysm
- Catheter access site pseudoaneurysm which is partially thrombosed
-getting thrombin inj
2. Elevated BP
-no formal diagnosis of hypertension, not on any blood pressure medication. Monitor
3. H/o seizures
- on lamicatal, continue.
DVT PPX - heparin subq
Full code
Anticipated Discharge: Within 24 hours
Subjective/Interval History
-
Date of Service: March 11, 2025
some left groin discomfort
no chest pain in morning
was placed on o2 overnight
Objective Data
-
Labs:
Laboratory Results
03/11/25
04:20
WBC 7.6
Hgb 12.9
Hct 35.9 L
Plt Count 245
Sodium 139
Potassium 4.3
Chloride 109 H
Carbon Dioxide 19 L
BUN 6 L
Creatinine 0.7
Glucose 107 H
Calcium 8.8
Vital Signs:
Vital Signs
Temp Pulse Resp BP Pulse Ox
98.7 F 78 14 143/87 99
03/11/25 15:28 03/11/25 15:28 03/11/25 15:28 03/11/25 15:28 03/11/25 15:28
I&O
03/10/25 03/11/25 03/12/25
06:59 06:59 06:59
Intake Total 10.8 / 10.8 744 / 744 200 / 200
Balance 10.8 .8 744 / 744 200 / 200
Review of Systems
-
Respiratory: Reports No Symptoms
Cardiac: Reports No Symptoms
Abdomen/GI: Reports No Symptoms
Physical Exam
-
General: No Apparent Distress and Comfortable
HEENT: Negative Oxygen
Respiratory: Clear to Auscultation
Cardiac: Regular Rhythm and S1/S2; Negative Murmur or Rub
GI: Soft and Nontender
Musculoskeletal: No Edema
Neuro: Awake, Alert, Oriented, No Motor Deficits and Nonfocal/Grossly Intact
Psych: Calm
--- NOTE | 2025-03-11 16:25 | W.PN.UPDATE ---
Update Note
Progress Note Update
- US guided thrombin injection of R FOOD CHEMIST PSA.
- 200 units thrombin injected into FOOD CHEMIST under continuous doppler with cessation of flow. Pt tolerated well
- Would recommend repeat US tomorrow
- R leg flat for 3 hrs
--- NOTE | 2025-03-11 16:33 | PTCARENOTE ---
Pt. back in room from [facility]. Site checks WNL. Pulses present.
--- NOTE | 2025-03-11 17:41 | PTCARENOTE ---
Rec'd Pt as tranfer from ICU, s/p thrombin injection to R femoral pseudoaneurysm in IR. Bandaid to R groin D+I. Denies pain but site tender on light palpation. Pt is A,A+Ox3 offers no complaints. + DP pulse.
[2025-03-11] MEDS: CRESTOR 20 MG PO (19:30)
[2025-03-11] MEDS: LAMICTAL 200 MG PO (21:48)
[2025-03-11] MEDS: LAMICTAL 50 MG PO (21:53)
--- NOTE | 2025-03-11 22:56 | PTCARENOTE ---
ax3 ambulated to bathroom. assisted to chair. groin site intact . bp wnl- medicated with Tylenol for back pain and groin site pain.
[2025-03-12 03:08] VITALS: BP 105/64
[2025-03-12 05:09] VITALS: BMI 33.2
[2025-03-12 05:27] LABS: Hematocrit 33.8 % (37.0-47.0); Hemoglobin 12.1 g/dL (12.0-16.0); Mean Corp Hgb Conc. 35.8 g/dL (33.0-37.0); Mean Corpuscular Volume 83.9 fL (81.0-99.0); Mean Platelet Volume 10.1 fL (7.4-10.4); Platelet Count 214 10^3/uL (130-400); Red Blood Cell Count 4.03 10^6/uL (4.20-5.40); Red Cell Dist. Width 12.6 % (11.5-14.5); White Blood Cell Count 6.5 10^3/uL (4.8-10.8)
[2025-03-12 06:00] LABS: Blood Urea Nitrogen 9 mg/dl (7-17); Carbon Dioxide 25 mmol/L (22-30); Chloride 108 mmol/L (98-107); Estimated Creatinine Clearance 103 ml/min; Glucose 91 mg/dl (70-99); Potassium 3.8 mmol/L (3.5-5.1); Sodium 140 mmol/L (135-145); eGFR > 60.00
[2025-03-12 08:01] VITALS: BP 116/68
[2025-03-12] MEDS: LOW STRENGTH ASPIRIN 81 MG PO (08:24)
[2025-03-12] MEDS: FEOSOL 325 MG PO (08:24)
[2025-03-12] MEDS: BRILINTA 90 MG PO (08:24)
--- NOTE | 2025-03-12 08:45 | W.PN.CD ---
Addendum entered and electronically signed by Ted Watt MD 03/12/25 13:37:
I saw and examined the patient.
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
Comment: OK for home if groin U/s OK. lungs clear groin tender but no mass.
Original Note:
Today's Communication / Plan
-
Groin US
S/P US guided thrombin injection of R [employer] PSA yesterday by IR.
Impression / Plan
-
Impression/Plan: 54 y/o female with NIDDM admitted with NSTEMI.
#NSTEMI:
-Acute, threat to life.
-Troponin peaked at 3.840.
-S/P cardiac catheterization and IVUS guided PCI of an occlusive 70% pLAD lesion (iFR = 0.76, Medtronic [place] 3.5 x 15 ALYSE, post dilated with a 3.5 NCB throughout, 4.0 x 8 NCB in the proximal margin).
-DAPT with aspirin and ticagrelor.
-Continue rosuvastatin 20 mg daily. Goal LDL < 55.
-Echo shows preserved systolic function.
-Cardiac rehab consult.
-Ambulate.
-Femoral access site is tender s/p thrombin injection for pseudoaneurysm
Right groin partially thrombosed pseudoaneurysm
-S/P US guided thrombin injection
-US today
-Remains tender
#NIDDM2:
-Chronic, stable/controlled.
-HbA1c = 4.5% (!).
-Resume tirzepatide as an outpatient.
#Depression:
-Chronic, stable.
-Continue home lamitrogine.
#Dispo
-D/C planning.
Subjective/Interval History:
Feeling well without CP and SOB.
Right groin tenderness.
DATA:
Transthoracic Echocardiogram, 03/10/2025:
CONCLUSIONS
Normal biventricular size and systolic function without regional wall motion
abnormality.
No significant valvular disease.
No prior study available for comparison.
Cardiac Catheterization/PCI, 03/10/2025:
CONCLUSIONS
1. Right dominant circulation with ostial tapering of the RCA, a cloacal left main and a surprisingly occlusive 70% proximal LAD lesion (IFR = 0.76) status post successful IVUS guided PCI (Medtronic [place] 3.5 x 15 ALYSE, postdilated with a
3.5 NC balloon throughout and a 4.0 x 8 NC balloon in the proximal margin) with reduction in stenosis to 0%, maintaining DILIA-3 flow.
2. Normal filling pressures (LVEDP = 12 mmHg at 87.5 kg).
Physical Exam
Vital Signs/Labs
Vital Signs
Temp Pulse Resp BP Pulse Ox
98.4 F 81 20 105/64 63
03/12/25 08:01 03/12/25 03:08 03/12/25 08:01 03/12/25 03:08 03/12/25 08:01
03/11/25 03/12/25 03/13/25
06:59 06:59 06:59
Actual Weight 88 kg 89.131 kg
03/12/25 05:07
03/12/25 05:07
PT 13.8 Sec (11.4-14.6) 03/10/25 00:37
INR 1.01 03/10/25 00:37
APTT Cancelled 03/10/25 15:16
Magnesium 1.8 mg/dl (1.6-2.3) 03/11/25 04:20
Triglycerides 61 mg/dl (10-149) 03/10/25 05:00
LDL Cholesterol, Calc 96 mg/dl 03/10/25 05:00
VLDL Cholesterol, Calc 12 mg/dl (0-30) 03/10/25 05:00
HDL Cholesterol 42 mg/dl 03/10/25 05:00
LAB Results
03/10/25 03/10/25 03/10/25
00:37 05:00 08:48
Troponin I 0.160 H* 1.520 H* D 3.500 H* D
03/10/25 03/10/25 03/10/25
10:11 15:16 21:13
Troponin I Cancelled 3.840 H* 3.240 H*
Physical Exam
Constitutional: No acute distress and Comfortable
EENT: Anicteric and Moist mucous membranes
Cardiovascular: Rhythm & rate is regular, S1S2 is normal and Murmur/rub/gallop absent
Respiratory: Respiratory effort normal and Lungs clear to auscul.
GI: Soft, Distention absent, Flat and Non tender
Neuro/Psych: AO x 3
Other: Cath Site (right groin tenderness )
Data Reviewed
-
Date of Service: March 12, 2025
--- NOTE | 2025-03-12 09:19 | PTCARENOTE ---
Assessment stable as documented. Pt continue to have severe tenderness to R Groin area with lite palpation. C/O of Achie in groin nad has difficulty transferring from a sitting to standing position. Pt indicates this is 'better' then yesterday.
[2025-03-12 12:44] VITALS: BP 118/80
--- NOTE | 2025-03-12 14:25 | W.PN.HOSP.TC ---
Today's Communication/Plan
-
d/c home if groin us w/o new findings
Assessment / Plan
Assessment / Plan
1. Chest pain
NSTEMI
Trop elevation
-Elevated trops upward of 3.5 at admission
-Echocardiogram showing normal ventricular function and no regional wall motion defect.
-Lipid profile reviewed, total cholesterol 150 LDL 96. A1c of 4.5
-Left heart catheterization done showing LAD stenosis which was stented with ALYSE
-Patient to be maintained on dual antiplatelet therapy with asa/brillanta. also started on crestor with [facility] findings.
2. Right femoral artery pseudoaneurysm
- Catheter access site pseudoaneurysm which is partially thrombosed
- Status post successful ultrasound-guided thrombin injection by IRAD yesterday
- Repeat femoral artery ultrasound result pending
2. Elevated BP
-no formal diagnosis of hypertension, not on any blood pressure medication. Monitor
3. H/o seizures
- on lamicatal, continue.
DVT PPX - heparin subq
Full code
More than 30 minutes spent in discharge including
Final examination of the patient
Summarizing hospital stay
Instructions for continuing care to all relevant caregivers
Preparation of discharge records, prescriptions, and referral forms
Total time spent (in minutes): 39 mins
Anticipated Discharge: Today
Subjective/Interval History
-
Date of Service: March 12, 2025
Complaining of some right groin pain
No chest discomfort/shortness of breath
No problem with balance
Objective Data
-
Labs:
Laboratory Results
03/12/25
05:07
WBC 6.5
Hgb 12.1
Hct 33.8 L
Plt Count 214
Sodium 140
Potassium 3.8
Chloride 108 H
Carbon Dioxide 25
BUN 9
Creatinine 0.7
Glucose 91
Calcium 9.0
Vital Signs:
Vital Signs
Temp Pulse Resp BP Pulse Ox
98.1 F 87 20 118/80 99
03/12/25 12:45 03/12/25 12:44 03/12/25 12:45 03/12/25 12:44 03/12/25 12:45
I&O
03/11/25 03/12/25 03/13/25
06:59 06:59 06:59
Intake Total 744 / 744 200 / 200 300 / 300
Balance 744 / 744 200 / 200 300 / 300
Review of Systems
-
Respiratory: Reports No Symptoms
Cardiac: Reports No Symptoms
Abdomen/GI: Reports No Symptoms
Physical Exam
-
General: No Apparent Distress and Comfortable
HEENT: Negative Oxygen
Respiratory: Clear to Auscultation
Cardiac: Regular Rhythm and S1/S2; Negative Murmur or Rub
GI: Soft and Nontender
Musculoskeletal: Other (Right groin tenderness)
Neuro: Awake, Alert, Oriented, No Motor Deficits and Nonfocal/Grossly Intact
Psych: Calm
--- NOTE | 2025-03-12 14:42 | PTCARENOTE ---
pt compliant of 'not feeling like I can catch my breath' Pt a little winded in her conversation. denies CP. VSS. O2 placed. 12 lead ECG NSR pending CXR. After 10 mins of O2 - pt feels a little better but not 100%. Pt does not appear in
distress.
[2025-03-12] MEDS: MAALOX 30 ML PO (17:35)
--- NOTE | 2025-03-12 18:22 | PTCARENOTE ---
Pt indicates she is unable to get to pharmacy [facility] - gave her her 8pm dose of Brilinta
[2025-03-12] MEDS: CRESTOR 20 MG PO (18:27)
--- NOTE | 2025-03-13 16:24 | W.DCSUMMARY ---
Discharge Summary
Discharge Data
Date of Admission: 03/10/25
Date of Discharge: 03/12/25
-
Pending Results: No
Hospital Course
Discharging Physician : Dr Cuba Cruz
Disposition : To home
Primary care physician : Unknown
Principal Discharge diagnosis :
Non-ST segment elevation myocardial infarction
Right femoral artery pseudoaneurysm
Coronary artery disease post left anterior descending coronary stent
Chronic Discharge diagnosis :
History of seizures
Hospital Course :
Patient is 54-year-old female with no mentioned past medical history came to ER with new onset of chest discomfort. Patient had radiation of pain to lower neck and arm and was improved with nitro drip. EKG did not show any ST segment changes.
Troponin troponin where minimally elevated with rapid uptrending on follow-up troponin. Cardiology was involved in care and patient started on heparin drip. After discussion patient was taken to left heart catheterization and was found to have LAD
stenosis which was stented. Postprocedure patient was instructed to be maintained on Brilinta/aspirin for 12 months. Following the patient was noted to having groin pain at femoral access site. In vascular ultrasound showed pseudoaneurysm which
was partially thrombosed. IRAD was consulted and patient had a thrombin injection with complete thrombosis of pseudoaneurysm achieved. A follow-up second vascular ultrasound showed stable thrombosed right groin pseudoaneurysm without any
complication. Patient was discharged to home at this point with follow-up with cardiology in the office.
Important imaging findings :
None
Procedure findings :
None
Discharge Plan
-
Patient Disposition: Home (Routine Discharge)
Discharge Diagnosis/Procedures: NSTEMI, Angioplasty with stent to LAD
Condition: Fair
Diet: Low Cholesterol
Activity: As tolerated
Driving Restrictions: No driving for 24 hours
Stand Alone Forms: DC Instructions- Cath/EP Lab
Referrals:
Karli Yost CRNP [Specified Professional Personl] - 04/05/25 8:40 am
Prescriptions:
New
ticagrelor [Brilinta] 90 mg Tablet
90 mg PO BID Qty: 60 2RF
aspirin 81 mg Tablet,Chewable
81 mg PO DAILY Qty: 30 2RF
rosuvastatin 20 mg Tablet
20 mg PO QPM Qty: 30 2RF
Continued
multivitamin Tablet
1 tab PO DAILY
lamotrigine [Lamictal] 200 mg Tablet
250 mg PO HS
acetaminophen 500 mg Tablet
1,000 mg PO QID PRN (Reason: pain)
ascorbic acid (vitamin C) [Vitamin C] 250 mg Tablet
250 mg PO DAILY
ferrous sulfate [iron] 325 mg (65 mg iron) Tablet
325 mg PO DAILY
vitamin B complex Capsule
1 cap PO DAILY
Discharge Orders:
Discharge Patient (As Directed); Ordered 03/12/25
Ordered By: Ruth Zafar
Discharge Date and Time
Discharge Date/Time: 03/12/25 19:08
Print Language: BANGLADESHI
[2025-03-14 13:05] LABS: ACT-LR - POC 311 Seconds (116-155)
[2025-03-14 13:05] LABS: ACT-LR - POC 178 Seconds (116-155)
[2025-03-14 13:05] LABS: ACT-LR - POC 248 Seconds (116-155)
[2025-03-14 13:05] LABS: ACT-LR - POC 302 Seconds (116-155)
== END 2025-03-12 19:08 | disposition home or self-care (01) | DRG 322 ==
LOC: IVU 02:50
PROVIDERS: Emergency Medicine; Internal Medicine Cardiovascular Disease; Nurse Practitioner Adult Health; Nurse Practitioner Family; Physician Assistant; Radiology Diagnostic Radiology; ADMITTING PHYSICIAN Internal Medicine; ATTENDING PHYSICIAN Hospitalist; CONSULT PHYSICIAN Internal Medicine Cardiovascular Disease; EMERGENCY PHYSICIAN Emergency Medicine
PROC: 027034Z Dilation of Coronary Artery, One Artery with Drug-eluting Intraluminal Device, Percutaneous Approach (ICD-10-PCS; 2025-03-10)
PROC: B2111ZZ Fluoroscopy of Multiple Coronary Arteries using Low Osmolar Contrast (ICD-10-PCS; 2025-03-10)
PROC: 4A023N7 Measurement of Cardiac Sampling and Pressure, Left Heart, Percutaneous Approach (ICD-10-PCS; 2025-03-10)
PROC: 4A033BC Measurement of Arterial Pressure, Coronary, Percutaneous Approach (ICD-10-PCS; 2025-03-10)
PROC: B240ZZ3 Ultrasonography of Single Coronary Artery, Intravascular (ICD-10-PCS; 2025-03-10)
PROC: 3E053GC Introduction of Other Therapeutic Substance into Peripheral Artery, Percutaneous Approach (ICD-10-PCS; 2025-03-11)
DX: I21.4 Non-ST elevation (NSTEMI) myocardial infarction (principal); E11.9 Type 2 diabetes mellitus without complications; I25.10 Atherosclerotic heart disease of native coronary artery without angina pectoris; E78.00 Pure hypercholesterolemia, unspecified; F32.A Depression, unspecified; G40.A09 Absence epileptic syndrome, not intractable, without status epilepticus; I10 Essential (primary) hypertension; I72.4 Aneurysm of artery of lower extremity; Z79.85 Long-term (current) use of injectable non-insulin antidiabetic drugs; Z82.49 Family history of ischemic heart disease and other diseases of the circulatory system; Z88.8 Allergy status to other drugs, medicaments and biological substances
CPT/HCPCS: 36002; 71045; 71046; 76942; 80048; 80053; 80061; 83036; 83735; 84484; 85025; 85027; 85347; 85610; 85730; 92978; 93005; 93306; 93458; 93799; 93926; 96365; 96367; 99152; 99153; 99291; C1725; C1753; C1769; C1874; C1894; C9600; Q9967

== ENCOUNTER 2025-05-04 18:11 | Outpatient (RCR) | payer OTHER, SELFPAY ==
[2025-05-04 15:58] LABS: Glucose - Point of Care 74 mg/dl (70-99)
== END 2025-05-04 23:59 | disposition home or self-care (01) ==
LOC: CRHB 18:11
PROVIDERS: ATTENDING PHYSICIAN Internal Medicine Cardiovascular Disease
DX: I25.10 Atherosclerotic heart disease of native coronary artery without angina pectoris (principal); Z95.5 Presence of coronary angioplasty implant and graft; I25.2 Old myocardial infarction
CPT/HCPCS: 82962; 93798

== ENCOUNTER 2025-05-10 12:14 | Outpatient (RCR) | payer OTHER, SELFPAY ==
[2025-05-10 12:26] LABS: Glucose - Point of Care 89 mg/dl (70-99)
[2025-05-10 12:55] LABS: Glucose - Point of Care 97 mg/dl (70-99)
[2025-05-10 13:29] LABS: Glucose - Point of Care 86 mg/dl (70-99)
== END 2025-05-10 23:59 | disposition home or self-care (01) ==
LOC: CRHB 12:14
PROVIDERS: ATTENDING PHYSICIAN Internal Medicine Cardiovascular Disease; FAMILY PHYSICIAN Physician Assistant
DX: I25.10 Atherosclerotic heart disease of native coronary artery without angina pectoris (principal); I25.2 Old myocardial infarction; Z95.5 Presence of coronary angioplasty implant and graft
CPT/HCPCS: 82962; 93797; 93798

== ENCOUNTER 2025-06-09 12:11 | Emergency (ER) | payer OTHER, SELFPAY ==
[2025-06-09 12:28] VITALS: BP 152/79
[2025-06-09 12:49] LABS: Hematocrit 30.0 % (37.0-47.0); Hemoglobin 10.3 g/dL (12.0-16.0); Mean Corp Hgb Conc. 34.3 g/dL (33.0-37.0); Mean Corpuscular Volume 81.5 fL (81.0-99.0); Nucleated Red Blood Cells % 0 %; Platelet Count 236 10^3/uL (130-400); Red Cell Dist. Width 13.0 % (11.5-14.5)
[2025-06-09 13:17] LABS: ALT (SGPT) 12 U/L (0-35); AST (SGOT) 19 U/L (14-36); Albumin 4.3 g/dl (3.5-5.0); Alkaline Phosphatase 41 U/L (38-126); Blood Urea Nitrogen 9 mg/dl (7-17); Calcium 8.7 mg/dl (8.4-10.2); Carbon Dioxide 25 mmol/L (22-30); Chloride 108 mmol/L (98-107); Glucose 94 mg/dl (70-99); Potassium 4.5 mmol/L (3.5-5.1); Sodium 138 mmol/L (135-145); Total Protein 6.5 g/dl (6.3-8.2); Troponin I < 0.012 ng/ml; eGFR > 60.00
[2025-06-09 14:41] VITALS: BMI 34.0
--- NOTE | 2025-06-09 14:45 | ED.GENMED ---
History of Present Illness
General
Chief Complaint: Breathing Problem
Source: patient
Time Seen by Provider: 06/09/25 14:31
History of Present Illness
History of Present Illness:
This patient is a 55-year-old female presents emergency department with complaints of feeling like the center of her chest is 'sore', described as feeling like she has been in a car accident. This is particularly worse with certain movements and a
deep breath. She feels slightly dyspneic. She denies hemoptysis. She also has noticed swelling of her right lower extremity from the knee down. This gets better with elevation. She denies recent trauma to that area but does note a bruise at the
anterior tib-fib area on the right side. She suspects this is because of the anticoagulation medication that she is taking. She notes slight nausea but denies vomiting, fever, chills, abdominal pain, headache, dizziness, or other complaints.
Patient was seen by her PCP today and referred to the emergency department for further evaluation.
Past History
Past History
ED Past Medical History: CAD, HTN, Hypercholesterolemia and IDDM
ED Past Surgical History: Cardiac, (X 1) and Tonsilectomy
Social History
Tobacco: Non-smoker
Alcohol: Occasional
Drug: None
Personal:
Living: with family
Phy Exam
Physical Exam
Physical Exam:
GENERAL: Alert , in no apparent distress
EYE: pupils equal and reactive
NECK: Supple, no significant adenopathy.
ENT: o/p clr, mmm.
CARDIAC: Regular rate and rhythm .
LUNGS: Clear breath sounds bilaterally, no acute respiratory distress, no wheezes/rales/rhonchi
ABDOMEN: Soft, without focal tenderness, no r/g, no cvat
NEUROLOGICAL: Alert and oriented, no focal neuro deficits
SKIN: Warm and dry, skin intact. There is a healing bruise noted at the right anterior tib-fib area on the right side
MUSCULOSKELETAL: No edema, well perfused. There is tenderness with palpation of the right calf without associated skin changes, swelling, warmth, crepitus or other abnormalities range of motion is preserved
PSYCH: Normal and appropriate interaction.
Course
Orders/Labs/Results
Orders:
Orders
06/09/25 12:13
Electrocardiogram (*1) Urgent
Reason for Study: Shortness of Breath
EKG- Treatment ONCE
06/09/25 12:31
US Periph Venous LOWER Ext RT Urgent
Comment:
Reason For Exam: right calf swelling with pain
06/09/25 12:40
Complete Blood Count/With Diff Urgent
Comprehensive Metabolic Panel Urgent
NT-proBNP Urgent
Comment: ADD ON
Troponin I Urgent
06/09/25 14:26
Add On- LAB Urgent
Tests Added?: BNP
06/09/25 14:45
CT Chest PE Study Urgent
Comment:
Reason For Exam: pleuritic cp, recent procedure
06/09/25 17:14
Troponin I Urgent
06/09/25 17:22
Ondansetron Injectable [Zofran] 4 mg .ROUTE .STK-MED ONE
Ondansetron Injectable [Zofran] 4 mg IV NOW STA
Abnormal Lab Results
06/09/25
12:40
RBC 3.68 L 10^6/uL
(4.20-5.40)
Hgb 10.3 L g/dL
(12.0-16.0)
Hct 30.0 L %
(37.0-47.0)
Chloride 108 H mmol/L
(98-107)
06/09/25 12:40
06/09/25 12:40
Vital Signs
Initial and Last Documented VS:
Initial Vital Signs
Temp Pulse Resp BP Pulse Ox
98.0 F 77 16 152/79 98
06/09/25 12:28 06/09/25 12:28 06/09/25 12:28 06/09/25 12:28 06/09/25 12:28
Last Documented Vital Signs
Temp Pulse Resp BP Pulse Ox
98.0 F 81 17 139/81 98
06/09/25 12:28 06/09/25 18:15 06/09/25 18:15 06/09/25 18:00 06/09/25 18:15
*Pulse Oximetry
SaO2: 98
Oxygen Mode of Delivery: Room air
Update Note
Update Note:
Patient presents to the Emergency Department with ___chest pain and leg swelling
Number and Complexity of Problems Addressed at the Encounter
� Chronic conditions affecting care:
� Acute Exacerbation and/or Progression of Chronic Illness:
� Differential Diagnosis includes: But not limited to DVT, PE, pleurisy, pericarditis, muscular pain, etc. etc.
Amount and/or Complexity of Data to be Reviewed and Analyzed
� I performed an independent evaluation of and my interpretation is:
EKG: Read by me, normal sinus rhythm, normal rate, normal axis, no acute ischemia
CT:No evidence of pulmonary embolism.
Pulmonary artery branching order level of the most proximal pulmonary embolism: N/A
No pneumothorax or effusion. No acute cardiopulmonary process.
Xrays:
Laboratory Studies: Troponin within normal limits, mild anemia noted, no active bleeding
Other:
� Review of other/old records reveals: Reviewed discharge summary from March 13, 2025 patient was care for regarding her non-STEMI he, right femoral artery pseudoaneurysm and CAD of the left anterior descending
� Clinical information was obtained by an independent historian:
� Prescriptions/Medications Considered but not given:
� Further testing considered but not performed:
Risk of Complications and/or Morbidity or Mortality of Patient Management
� Social determinants of health affecting care:
� Discussion with other providers (PCP, Hospitalists, Consultants, etc):
� Escalation of care including admission/observation vs risk of discharge considered: 7:00 PM patient remained stable here, d/w her results including mild anemia. no active bleeding. recommend close f/u and reasons to rted.
ED Attending Note
-
Portions of this chart may have been created with voice recognition software.� Occasional wrong word or��sound alike� substitutions may have occurred due to the inherent limitations of voice recognition software.
Discharge Plan
Departure
Patient Disposition: Home (Routine Discharge)
Date of Disposition: 06/09/25
Time of Disposition: 19:03
Patient with high blood pressure during this ER visit?: Yes
Condition: Good
Discharge Problem:
Chest pain, Leg swelling
Instructions: Swelling, Chest Pain (DC), Anemia overview, BLOOD PRESSURE
Prescriptions:
No Action
multivitamin Tablet
1 tab PO DAILY
lamotrigine [Lamictal] 200 mg Tablet
250 mg PO HS
acetaminophen 500 mg Tablet
1,000 mg PO QID PRN (Reason: pain)
ascorbic acid (vitamin C) [Vitamin C] 250 mg Tablet
250 mg PO DAILY
ferrous sulfate [iron] 325 mg (65 mg iron) Tablet
325 mg PO DAILY
vitamin B complex Capsule
1 cap PO DAILY
ticagrelor [Brilinta] 90 mg Tablet
90 mg PO BID Qty: 60 2RF
aspirin 81 mg Tablet,Chewable
81 mg PO DAILY Qty: 30 2RF
rosuvastatin 20 mg Tablet
20 mg PO QPM Qty: 30 2RF
Referrals:
Berny Tadeo DO [Family Provider, Family Practice] - Follow up in 2-3 days
Activity Restrictions/Additional Instructions:
YOU HAVE ANEMIA THAT WAS NOTED HERE. PLEASE BRING YOUR TESTING RESULTS ATTACHED HERE WITH YOUR DOCTOR FOR CLOSE FOLLOW UP. IF YOU DEVELOP BLEEDING, FEVER, INCREASING/NEW CHEST PAIN, TROUBLE BREATHING, ABDOMINAL PAIN, DIZZINESS, VOMITING, OR OTHER
WORRISOME SIGNS, GO TO THE ER IMMEDIATELy!
Interventions
Interventions:
*Risk Screen - Suicide Last Done: 06/09/25 12:28
*Neglect/Abuse Screening Last Done: 06/09/25 12:28
ED- Cardiac Assessment Last Done: 06/09/25 14:42
ED- Pulmonary Assessment Last Done: 06/09/25 14:42
Discharge Date and Time
Print Language: BERMUDIAN
[2025-06-09 15:27] VITALS: BP 135/66
[2025-06-09 16:00] VITALS: BP 140/82
[2025-06-09 17:15] VITALS: BP 144/82
[2025-06-09] MEDS: ZOFRAN 4 MG IV (17:23)
[2025-06-09 17:47] LABS: Troponin I < 0.012 ng/ml
[2025-06-09 18:00] VITALS: BP 139/81
[2025-06-09 19:00] VITALS: BP 142/70
== END 2025-06-09 19:10 | disposition home or self-care (01) ==
LOC: EMR 12:11
PROVIDERS: Emergency Medicine; EMERGENCY PHYSICIAN Emergency Medicine; FAMILY PHYSICIAN Family Medicine
DX: R07.9 Chest pain, unspecified (principal); R22.41 Localized swelling, mass and lump, right lower limb; D64.9 Anemia, unspecified; I25.10 Atherosclerotic heart disease of native coronary artery without angina pectoris; I10 Essential (primary) hypertension; E11.9 Type 2 diabetes mellitus without complications; E78.00 Pure hypercholesterolemia, unspecified; Z79.4 Long term (current) use of insulin
CPT/HCPCS: 99284; 96374; 71275; 80053; 83880; 84484; 85025; 93005; 93971; Q9967

== ENCOUNTER → 2025-06-28 07:16 | Outpatient (REF) | payer OTHER, SELFPAY | LOC: HWRCS 07:16 | PROVIDERS: ATTENDING PHYSICIAN Nurse Practitioner Gerontology; FAMILY PHYSICIAN Family Medicine | DX: R07.89 Other chest pain (principal); I25.10 Atherosclerotic heart disease of native coronary artery without angina pectoris | CPT/HCPCS: 78452; 93017; A9500 ==

== ENCOUNTER → 2025-06-30 15:00 | Outpatient (REF) | payer OTHER, SELFPAY | LOC: HWRCS 15:00 | PROVIDERS: ATTENDING PHYSICIAN Nurse Practitioner Gerontology; FAMILY PHYSICIAN Family Medicine | DX: R07.89 Other chest pain (principal); I25.10 Atherosclerotic heart disease of native coronary artery without angina pectoris | CPT/HCPCS: 93306 ==

== ENCOUNTER 2025-10-03 10:46 | Emergency (ER) | payer OTHER, SELFPAY ==
[2025-10-03] VITALS (23 sets, daily range): BP systolic 121–183; BP diastolic 70–103
[2025-10-03] MEDS: LOW STRENGTH ASPIRIN 243 MG PO (11:01)
--- NOTE | 2025-10-03 11:02 | ED.GENMED ---
History of Present Illness
<Denny Tobar MD - Last Filed: 10/05/25 02:28>
General
Chief Complaint: Chest Pain
Source: patient
Exam Limitations: none
Time Seen by Provider: 10/03/25 10:59
Nursing documentation reviewed up to this point in time: agreed with
History of Present Illness
History of Present Illness:
Patient with history of CAD, status post cardiac stent placement in March 2025, presents to ED secondary to recurrent left-sided chest pain while she was at work this morning at 10 AM. Chest pain described as pressure, associated with left arm
heaviness, same symptoms as what she experienced in March. Denies shortness of breath. Denies nausea or vomiting. Denies dizziness. Denies recent illness. Denies recent trauma. Denies recent travel or surgery. Patient is currently taking
aspirin and Brilinta.
Past History
<Denny Tobar MD - Last Filed: 10/05/25 02:28>
Past History
ED Past Medical History: CAD, HTN, Hypercholesterolemia and IDDM
ED Past Surgical History: Cardiac, (X 1) and Tonsilectomy
Social History
Tobacco: Non-smoker
Alcohol: Occasional
Drug: None
Personal:
Living: with family
Review of Systems
<Denny Tobar MD - Last Filed: 10/05/25 02:28>
Review of Systems
Allergies reviewed?: Yes
All Other Systems: ROS reviewed and negative except as documented in HPI and ROS
Constitutional: Reports no symptoms
Respiratory: Reports no symptoms
Cardiac: Reports chest pain
ABD/GI: Reports no symptoms
Musculoskeletal: Reports no symptoms
Skin: Reports no symptoms
Neurological: Reports no symptoms
Phy Exam
<Denny Tobar MD - Last Filed: 10/05/25 02:28>
Physical Exam
Physical Exam:
Physical Exam
General: mild distress, not acutely ill. afebrile
Head: nc/at. eomi
Neck: supple. normal range of motion
Heart: s1/s2 regular rate and rhythm
Lungs: no acute respiratory distress. clear bilaterally. chest wall nontender to palpation
Abdomen: normal bowel sounds. not tender.
Neuro: alert and oriented x 3. no focal neurological deficits
Skin: no rash
Psychiatric: well kept. interactive and cooperative
Extremities: no edema. no calf tenderness.
Scores
<Denny Tobar MD - Last Filed: 10/05/25 02:28>
Heart Score for Chest Pain Patients
STEMI patient?: No
History: Moderately Suspicious
ECG: Normal
Age: >45 - <65 years
Risk Factors: >/= 3 Risk Factors or History of CAD
Troponin: </= Normal Limit
Heart Score for Chest Pain Patients: 4
Heart Score Risk: 20.3% MACE over next 6 weeks
Course
<Denny Tobar MD - Last Filed: 10/05/25 02:28>
Orders/Labs/Results
Orders:
Orders
10/03/25 10:47
EKG [Electrocardiogram (*1)] Urgent
Reason for Study: Chest Pain
EKG- Treatment ONCE
10/03/25 10:58
Aspirin Chewable [Low Strength Aspirin] 243 mg .ROUTE .STK-MED ONE
10/03/25 10:59
Nitroglycerin Sublingual [Nitrostat (Sublingual)] 0.4 mg .ROUTE .STK-MED ONE
10/03/25 11:00
Aspirin Chewable [Low Strength Aspirin] 243 mg PO NOW STA
10/03/25 11:01
Nitroglycerin Sublingual [Nitrostat (Sublingual)] 0.4 mg SL NOW STA
10/03/25 11:03
Complete Blood Count/With Diff Urgent
Comprehensive Metabolic Panel Urgent
Prothrombin Time Urgent
Troponin I Urgent
10/03/25 11:19
EKG [Electrocardiogram (*1)] Urgent
Reason for Study: Chest Pain
EKG- Treatment ONCE
10/03/25 11:21
Morphine Sulfate 2 mg .ROUTE .STK-MED ONE
Morphine Sulfate 2 mg IV NOW STA
10/03/25 11:47
CARDIOLOGY CONSULT Urgent
Consulting Provider: Saúl Rowan
Was physician already notified: Yes
Reason for consult: chest pain
10/03/25 12:02
Echo Follow-up Study Routine
Reason for Study: chest pain, hx of CAD- see below
Comment: assess wall motion and for effusion- TY
10/03/25 12:25
CT Head & Neck Angio W/wo IV Routine
Comment:
Reason For Exam: LUE numbness/weakness, recurrent
10/03/25 12:50
NEUROLOGY CONSULT Urgent
Consulting Provider: Farshad Campbell
Was physician already notified: Yes
Reason for consult: Left arm heaviness
10/03/25 13:52
Troponin I Routine
10/03/25 14:28
Acetaminophen [Tylenol] 650 mg PO NOW STA
10/03/25 15:49
Troponin I Routine
Abnormal Lab Results
10/03/25
11:03
RBC 5.79 H 10^6/uL
(4.20-5.40)
Hgb 11.6 L g/dL
(12.0-16.0)
MCV 67.7 L fL
(81.0-99.0)
MCH 20.0 L pg
(27.0-31.0)
MCHC 29.6 L g/dL
(33.0-37.0)
RDW 16.7 H %
(11.5-14.5)
Absolute Neuts (auto) 7.1 H 10^3/uL
(1.4-6.5)
Neutrophils % 75.9 H %
(42.2-75.2)
Lymphocytes % 16.6 L %
(20.5-51.1)
Chloride 109 H mmol/L
(98-107)
Carbon Dioxide 20 L mmol/L
(22-30)
Glucose 130 H mg/dl
(70-99)
10/03/25 11:03
10/03/25 11:03
Vital Signs
Initial and Last Documented VS:
Initial Vital Signs
Pulse Resp BP Pulse Ox
97 20 183/102 100
10/03/25 10:53 10/03/25 10:53 10/03/25 10:53 10/03/25 10:53
Last Documented Vital Signs
Temp Pulse Resp BP Pulse Ox
98.1 F 85 13 140/71 98
10/03/25 11:29 10/03/25 17:00 10/03/25 17:00 10/03/25 17:00 10/03/25 17:00
Diogolt;Dimitrios Navarrete, DO - Last Filed: 10/03/25 17:01>
Orders/Labs/Results
Orders:
Orders
10/03/25 10:47
EKG [Electrocardiogram (*1)] Urgent
Reason for Study: Chest Pain
EKG- Treatment ONCE
10/03/25 10:58
Aspirin Chewable [Low Strength Aspirin] 243 mg .ROUTE .STK-MED ONE
10/03/25 10:59
Nitroglycerin Sublingual [Nitrostat (Sublingual)] 0.4 mg .ROUTE .STK-MED ONE
10/03/25 11:00
Aspirin Chewable [Low Strength Aspirin] 243 mg PO NOW STA
10/03/25 11:01
Nitroglycerin Sublingual [Nitrostat (Sublingual)] 0.4 mg SL NOW STA
10/03/25 11:03
Complete Blood Count/With Diff Urgent
Comprehensive Metabolic Panel Urgent
Prothrombin Time Urgent
Troponin I Urgent
10/03/25 11:19
EKG [Electrocardiogram (*1)] Urgent
Reason for Study: Chest Pain
EKG- Treatment ONCE
10/03/25 11:21
Morphine Sulfate 2 mg .ROUTE .STK-MED ONE
Morphine Sulfate 2 mg IV NOW STA
10/03/25 11:47
CARDIOLOGY CONSULT Urgent
Consulting Provider: Saúl Rowan
Was physician already notified: Yes
Reason for consult: chest pain
10/03/25 12:02
Echo Follow-up Study Routine
Reason for Study: chest pain, hx of CAD- see below
Comment: assess wall motion and for effusion- TY
10/03/25 12:25
CT Head & Neck Angio W/wo IV Routine
Comment:
Reason For Exam: LUE numbness/weakness, recurrent
10/03/25 12:50
NEUROLOGY CONSULT Urgent
Consulting Provider: Farshad Campbell
Was physician already notified: Yes
Reason for consult: Left arm heaviness
10/03/25 13:52
Troponin I Routine
10/03/25 14:28
Acetaminophen [Tylenol] 650 mg PO NOW STA
10/03/25 15:49
Troponin I Routine
Abnormal Lab Results
10/03/25
11:03
RBC 5.79 H 10^6/uL
(4.20-5.40)
Hgb 11.6 L g/dL
(12.0-16.0)
MCV 67.7 L fL
(81.0-99.0)
MCH 20.0 L pg
(27.0-31.0)
MCHC 29.6 L g/dL
(33.0-37.0)
RDW 16.7 H %
(11.5-14.5)
Absolute Neuts (auto) 7.1 H 10^3/uL
(1.4-6.5)
Neutrophils % 75.9 H %
(42.2-75.2)
Lymphocytes % 16.6 L %
(20.5-51.1)
Chloride 109 H mmol/L
(98-107)
Carbon Dioxide 20 L mmol/L
(22-30)
Glucose 130 H mg/dl
(70-99)
10/03/25 11:03
10/03/25 11:03
Vital Signs
Initial and Last Documented VS:
Initial Vital Signs
Pulse Resp BP Pulse Ox
97 20 183/102 100
10/03/25 10:53 10/03/25 10:53 10/03/25 10:53 10/03/25 10:53
Last Documented Vital Signs
Temp Pulse Resp BP Pulse Ox
98.1 F 85 13 140/71 98
10/03/25 11:29 10/03/25 17:00 10/03/25 17:00 10/03/25 17:00 10/03/25 17:00
<Denny Tobar MD - Last Filed: 10/05/25 02:28>
MDM/Problems Addressed
MDM/Problems Addressed:
History and exam concerning for unstable angina. Repeat EKG without any acute ST changes. Patient given nitroglycerin without improvement. Patient subsequently given morphine 2 mg IV, with mild improvement.
Initial troponin normal. Patient evaluated bedside by Dr. Rowan, cardiology. Will order echocardiogram and repeat troponin. In the meantime, request neurology evaluation ongoing left arm weakness, which may not be cardiac in origin.
Patient evaluated by Dr. Campbell, neurology. Does not feel the patient's left arm weakness is neurological in origin. However, does recommend ordering CT angiogram head and neck. If negative, will not need any further neurological evaluation.
<Denny Tobar MD - Last Filed: 10/05/25 02:28>
*Pulse Oximetry
SaO2: 100
Oxygen Mode of Delivery: Room air
Patient hypoxic: no
*EKG
Interpreted by ED Provider?: Yes
EKG Intrepretation Date: 10/03/25
Heart Rate: 103
Rate: tachycardiac
Rhythm: sinus
[place]: normal axis
Interval: normal interval
*Critical Care Note
Total Time (30-74mins, 75-104mins- exclusive of procedures): Not Applicable
<Dimitrios Navarrete DO - Last Filed: 10/03/25 17:01>
Update Note
Update Note:
Patient received in signout. As per cardiology repeat troponin and if negative okay for discharge and outpatient follow-up. Echocardiogram shows normal biventricular size and function without regional wall motion abnormalities, left ventricular
ejection fraction 65-70 percent, no significant valvular disease and no change from June 2025
1700 case discussed with cardiology after repeat troponin unremarkable. Cardiology recommends discharge for outpatient follow-up
ED Attending Note
<Denny Tobar MD - Last Filed: 10/05/25 02:28>
-
Portions of this chart may have been created with voice recognition software.� Occasional wrong word or��sound alike� substitutions may have occurred due to the inherent limitations of voice recognition software.
Discharge Plan
Departure
Patient Disposition: Home (Routine Discharge)
Date of Disposition: 10/03/25
Time of Disposition: 17:00
Patient with high blood pressure during this ER visit?: No
Discharge Problem:
Chest pain
Instructions: Chest Pain CBC Follow Up
Prescriptions:
No Action
lamotrigine [Lamictal] 200 mg Tablet
250 mg PO HS
acetaminophen 500 mg Tablet
1,000 mg PO QIDPRN PRN (Reason: mild pain)
norethindrone-e.estradiol-iron [Aurovela Fe 1-20 (28)] 1 mg-20 mcg (21)/75 mg (7) Tablet
1 tab PO DAILY
Mounjaro 15 mg/0.5 mL Pen Injector
15 mg SC WE
aspirin 81 mg tablet,chewable
81 mg PO DAILY
rosuvastatin 20 mg tablet
20 mg PO QPM
ticagrelor [Brilinta] 90 mg tablet
90 mg PO BID
Theragen Tablet
1 tab PO DAILY
Referrals:
UNKNOWN,NO INTERVIEW [Family Provider]
Stand Alone Forms: Return to Work
Activity Restrictions/Additional Instructions:
Please avoid strenuous or exertional activity until cleared by cardiology. Please see cardiology in the next 48 hours for reevaluation. Return immediately for worsening pain, shortness breath, palpitations, sweating, nausea, weakness of any kind,
numbness, tingling or any other concerns.
Cardiology has been notified and a follow up appointment has been requested. Someone will call you on the next business day to schedule a follow up appointment.
Interventions
Interventions:
*Risk Screen - Suicide Last Done: 10/03/25 10:53
*General Assessment Last Done: 10/03/25 11:05
*Neglect/Abuse Screening Last Done: 10/03/25 11:05
*ED COVID-19 Vaccine History Last Done: 10/03/25 11:05
*ED Influenza Vaccine History Last Done: 10/03/25 11:05
*Nursing Disposition Last Done: 10/03/25 17:28
ED- Cardiac Assessment Last Done: 10/03/25 11:05
Discharge Date and Time
Discharge Date/Time: 10/03/25 17:29
Print Language: YI
[2025-10-03] MEDS: NITROSTAT (SUBLINGUAL) 0.4 MG SL (11:08)
[2025-10-03 11:18] LABS: Hematocrit 39.2 % (37.0-47.0); Hemoglobin 11.6 g/dL (12.0-16.0); Mean Corp Hgb Conc. 29.6 g/dL (33.0-37.0); Mean Corpuscular Volume 67.7 fL (81.0-99.0); Nucleated Red Blood Cells % 0 %; Platelet Count 360 10^3/uL (130-400); Red Cell Dist. Width 16.7 % (11.5-14.5)
[2025-10-03] MEDS: MORPHINE SULFATE 2 MG IV (11:22)
[2025-10-03 11:27] LABS: INR 0.98; PT 13.3 Sec (11.4-14.6)
[2025-10-03 11:41] LABS: ALT (SGPT) 13 U/L (0-35); AST (SGOT) 20 U/L (14-36); Albumin 4.5 g/dl (3.5-5.0); Alkaline Phosphatase 46 U/L (38-126); Blood Urea Nitrogen 10 mg/dl (7-17); Calcium 9.0 mg/dl (8.4-10.2); Carbon Dioxide 20 mmol/L (22-30); Chloride 109 mmol/L (98-107); Glucose 130 mg/dl (70-99); Potassium 4.1 mmol/L (3.5-5.1); Sodium 137 mmol/L (135-145); Total Protein 7.4 g/dl (6.3-8.2); eGFR > 60.00
[2025-10-03 11:50] LABS: Troponin I < 0.012 ng/ml
--- NOTE | 2025-10-03 12:04 | CON.CAR ---
Addendum entered and electronically signed by Saúl Rowan MD 10/03/25 16:55:
I saw and evaluated the patient, and I provided the substantive portion of the medical decision making.
I reviewed and agree with the note by Ms Landin and it accurately reflects our care.
I personally performed the medical decision making of the this encounter and my assessment and plan is below:
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
chest pressure, which started this AM at 945 while she was sitting. About 25 minutes later, she developed left arm heaviness, which is what really worried her and brought her to the ER.
It is unclear to was the cause of her chest pain. She tells me this has been ongoing since March. She had a normal nuclear stress test in June of this year. Additionally, her echocardiogram from June and today have also been unrevealing.
Fortunately, her troponins today have essentially been normal.
Interestingly, her left arm weakness resolved without any intervention. It is not obvious as to the cause of her left arm weakness at this time. Neurology had been consulted.
Given her normal testing there is no need for further intervention such as coronary angiography. We will follow-up as an outpatient.
Original Note:
Consultation
Consultation Request
Date/Time Consultation Requested: 10/03/25 1135
Date/Time Consultation Performed: 10/03/25 1138
Requesting Provider: Dr. Tobar
Performing Provider: Minerva WARNER for Dr. Rowan
Reason for Consultation: chest pain
Medical History
-
Chief Complaint: chest pain and left arm heaviness
History of Present Illness:
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
chest pressure, which started this AM at 945 while she was sitting. About 25 minutes later, she developed left arm heaviness, which is what really worried her and brought her to the ER. Feels similar to prior to her [place]. However, EKG and trop are
normal. She has had intermittent chest pressure, but had normal nuclear stress test 06/28/25. She received nitro, which didn't help, but morphine seems to have. She does continue to have her chest and arm symptoms, but is in no acute distress. No
SOB. Of note, there is more pain with inspiration and to palpation. She denies any recent abnormal lifting.
Past Medical History
Past Medical History: CAD, GERD, NIDDM and Other (as above)
Social History
Tobacco: Non-Smoker
Employment: Employed
Family History
Family History: Reviewed & Not Pertinent
Allergies / Home Medications
Allergy/AdvReac Type Severity Reaction Status Date / Time
phenytoin (From Dilantin) Allergy Unknown Verified 10/03/25 10:53
�Medication �Instructions �Recorded �Confirmed �Type
acetaminophen 500 mg tablet 1,000 mg PO QIDPRN PRN mild pain 03/10/25 10/03/25 History
lamotrigine 200 mg tablet 250 mg PO HS Neurological Condition 03/10/25 10/03/25 History
(Lamictal)
aspirin 81 mg chewable tablet 81 mg PO DAILY Blood Clot 10/03/25 10/03/25 History
Prevention/Tx
norethindrone 1 mg-ethinyl 1 tab PO DAILY Hormonal Agent 10/03/25 10/03/25 History
estradiol 20 mcg (21)-iron 75 mg
(7) tablet (Aurovela Fe 1-20 (28))
rosuvastatin 20 mg tablet 20 mg PO QPM High Cholesterol 10/03/25 10/03/25 History
therapeutic multivitamin 1 tab PO DAILY Supplement 10/03/25 10/03/25 History
ticagrelor 90 mg tablet (Brilinta) 90 mg PO BID Blood Clot 10/03/25 10/03/25 History
Prevention/Tx
tirzepatide 15 mg/0.5 mL 15 mg SC WE Weight Gain 10/03/25 10/03/25 History
subcutaneous pen injector
(Lidya)
Review of Systems
-
History Source: Patient
All other systems: Negative unless noted
Cardiac: Chest Pain
Musculoskeletal: Other (left arm heaviness)
Physical Exam
Vital Signs
Temp Pulse Resp BP Pulse Ox
98.1 F 109 18 158/89 100
10/03/25 11:29 10/03/25 11:04 10/03/25 11:04 10/03/25 11:08 10/03/25 11:03
Lab Results
10/03/25 11:03
10/03/25 11:03
Troponin I < 0.012 ng/ml 10/03/25 11:03
Physical Exam
General: Well Developed, Well Nourished and No Apparent Distress
HEENT: Normocephalic and Anicteric
Respiratory: Clear and Non Labored Respirations
Cardiac: Regular Rhythm
Musculoskeletal: No Edema
Skin: Warm and Dry
Neuro: AO x 3
Psych: Calm
Impression / Plan
-
Chest pain, arm heaviness:
-EKG and trop are fine. Check another troponin. Recent stress testing normal as below.
-pain with inspiration and palpation. Will check echo f/u study.
-she is unable to lift her arm normally and ER planning to have neuro assess- this is not a typical cardiac symptom
CAD with hx LAD stenting:
-continue ASA and Brilinta- has been stable
-continue statin
-cath 03/10/25: Right dominant circulation with ostial tapering of the RCA, a cloacal left main and a surprisingly occlusive 70% proximal LAD lesion (IFR = 0.76) status post successful IVUS guided PCI ([employer] [place] Alpine 3.5 x 15 ALYSE,
postdilated with a 3.5 NC balloon throughout and a 4.0 x 8 NC balloon in the proximal margin) with reduction in stenosis to 0%, maintaining DILIA-3 flow.
2. Normal filling pressures (LVEDP = 12 mmHg at 87.5 kg).
Data:
Nuclear stress test 06/28/25: Normal exercise nuclear stress test. Negative ECG for ischemia. The exercise tolerance is well below average for given age and gender. Stress Risk is low risk study (<1% [place] or /year). (Mcintyre Treadmill Score = +6).
Systolic function is normal. The ejection fraction is 62%.
Echo 06/30/25: Left ventricular ejection fraction is normal with an ejection fraction of 60 % by Sawyer's biplane method of discs. Right ventricular size and systolic function are within normal limits. No significant valvular disease.
Data Reviewed
-
EKG: Tracing Personally Visualized and interpreted (SR 106 BPM)
Radiology: Report Reviewed by me
Medical Tests (Nuc Med, Echo etc): Report Reviewed by me (stress test)
Labs: Labs Reviewed by me
--- NOTE | 2025-10-03 12:21 | CON.NEURO4 ---
Addendum entered and electronically signed by Farshad Campbell MD 10/03/25 22:11:
The patient was seen and examined on 10/03/2025 along with the nurse practitioner Kandy Dubois, and I agree with her assessment and management plan. Given below is my addendum.
The patient is a 55 years old female who presented to the hospital with report of chest pressure, and left arm heaviness and paresthesias. The patient had a NSTEMI in March 2025 with stent placement and has been taking ticagrelor and aspirin 81mg
since. She notes that at that time, before she underwent cardiac stenting, she had a 4-5 hour episode of left arm heaviness and tingling that completely resolved. This morning (10/03/25), she was in her usual state sitting at her desk when at 1000
she suddenly developed left-sided chest pressure and left arm heaviness and tingling. Currently, she reports that her left arm strength has returned to normal but her left hand is still mildly tingly. She reports that her symptoms feel identical to
when she got her cardiac stent.
Neurologic examination: The patient is alert and oriented x 3, speech is clear, cranial nerves II to XII grossly intact, visual quintanilla are grossly full, motor strength is grossly 5 out of 5 bilaterally, the sensations are intact, and there is no
limb ataxia seen.
The CT of the head did not show any acute intracranial process, the CTA of the head and neck did not show a large vessel occlusion.
The etiology of the left upper extremity transient weakness and paresthesias is unlikely to be neurological in nature but it cannot be entirely excluded. The plan is to continue with home ticagrelor and aspirin. Continue rosuvastatin 20 mg daily.
The patient has similar symptoms when she had a NSTEMI in March 2025 with stent placement. Follow-up with cardiology.
Follow-up with neurology as an outpatient.
Original Note:
Consultation - Neurology 4
-
CONSULTING PHYSICIAN: Farshad Campbell MD
REFERRING PHYSICIAN: ER/Dr. Tobar
DICTATED BY: TIMMY Bray
DATE/TIME OF REQUEST: 10/03/25
DATE/TIME OF CONSULTATION: 10/03/25
Reason for Consultation: Left arm weakness and paresthesias
History of Present Illness:
This is a 55-year-old female who has presented to the hospital with report of chest pain and left arm heaviness and paresthesias. Patient had an NSTEMI in March 2025 with stent placement and has been taking ticagrelor and aspirin 81mg since. She
notes that at that time, before she underwent cardiac stenting, she had a 4-5 hour episode of left arm heaviness and tingling that completely resolved. This morning (10/03/25), she was in her usual state sitting at her desk when at 1000 she suddenly
developed left-sided chest pressure and left arm heaviness and tingling. Currently, she reports that her left arm strength has returned to normal but her left hand is still mildly tingly. She reports that her symptoms feel identical to when she got
her cardiac stent. She reports a mild right-sided headache but denies any photo/phonophobia, nausea, and vomiting. She denies any dizziness, vision changes, and speech/swallow difficulty.
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
Surgical History: Cardiac stent 03/2025, , tonsillectomy.
Family History: Reviewed and noncontributory.
Social History: Denies tobacco, alcohol, and illicit drug use.
Allergies: Phenytoin.
Home Medications: See below.
Review of Symptoms:
Patient denies any fever, headache, chest pain, shortness of breath, GI or symptoms.
Physical Exam:
The patient is afebrile, abdomen is nondistended, breathing is unlabored, skin is warm and dry, +1 BLE edema.
NIH Stroke Scale:
I performed the NIH stroke scale on the patient on 10/03/25 at 1230. The patient scored 1 points on the NIH stroke scale assessment, which were assigned as follows: See below.
Neurologic Examination:
The patient is awake, alert and oriented x 3. She is able to follow commands and answer questions appropriately. There is no aphasia or dysarthria. On cranial nerve assessment, pupils are 3 mm bilateral, round and reactive to light and
accommodation. Visual quintanilla are full. Extraocular movements are intact. Facial sensations are intact and bilaterally symmetrical, there is no facial asymmetry. Hearing is intact bilaterally to normal conversation volume. Tongue palate and uvula are
midline. Sternocleidomastoid strengths are full bilaterally. Motor strengths are 5/5 bilateral upper and lower extremities on medical research [place] scale. There is no drift or involuntary movement noted. There was no extinction noted on double
simultaneous stimulation. Coordination is intact by finger to nose bilaterally.
Lab Results: See below.
Neuro Imaging:
1. CTA head/neck 10/03/25: CT Brain: No acute intracranial process. CTA Head: No significant arterial stenosis. No aneurysm. Mild atherosclerotic calcifications of the bilateral carotid siphons. CTA Neck: No significant arterial stenosis. Mild
atherosclerotic calcifications of the carotid bifurcations without significant stenosis. Degenerative changes of the cervical spine most pronounced at C6-C7 where there is resultant likely at least moderate neuroforaminal narrowing. Further
evaluation with nonemergent MRI cervical spine May BE considered as clinically warranted.
Differentials for the patient's presentation include:
1. Left upper extremity weakness and paresthesias, resolving. Etiology is unlikely to be neurological in nature but cannot entirely exclude this; possibilities include cardiogenic, headache phenomenon, and less likely stroke.
Patient has the following risk factors for their symptoms: Hx similar episodes, HLD, migraines
IV Tenecteplase/IAT candidacy: Not a candidate due to low NIHSS, low concern for a neurological source of symptoms.
Recommendations:
-Continue home ticagrelor and aspirin.
-Goal normotension.
-Do not see a role for MRI brain imaging at this point as she reports feeling just about back to baseline and it will not likely change the plan of care.
-TTE pending per Cardiology.
-Provide patient with a stroke education packet.
-LDL goal <70. Continue rosuvastatin 20mg daily.
-Checking blood work for metabolic abnormalities.
-CTA head/neck imaging is suggestive of C6-C7 moderate foraminal narrowing, can consider MRI cervical spine as an outpatient.
-Follow-up with Neurology as an outpatient.
Discussed patient care with: Dr. Campbell, the patient
Vital Signs and Labs
-
Vital Signs and Labs:
Vital Signs
Temp Pulse Resp BP Pulse Ox
98.1 F 84 15 132/76 72
10/03/25 11:29 10/03/25 13:50 10/03/25 13:50 10/03/25 13:50 10/03/25 13:45
Lab Results
10/03/25 11:03
10/03/25 11:03
PT 13.3 Sec (11.4-14.6) 10/03/25 11:03
INR 0.98 10/03/25 11:03
Sodium 137 mmol/L (135-145) 10/03/25 11:03
Potassium 4.1 mmol/L (3.5-5.1) 10/03/25 11:03
BUN 10 mg/dl (7-17) 10/03/25 11:03
Glucose 130 mg/dl (70-99) H 10/03/25 11:03
Calcium 9.0 mg/dl (8.4-10.2) 10/03/25 11:03
Medications
-
Home Medications
�Medication �Instructions �Recorded
acetaminophen 500 mg tablet 1,000 mg PO QIDPRN PRN mild pain 03/10/25
lamotrigine 200 mg tablet 250 mg PO HS Neurological Condition 03/10/25
(Lamictal)
aspirin 81 mg chewable tablet 81 mg PO DAILY Blood Clot 10/03/25
Prevention/Tx
norethindrone 1 mg-ethinyl 1 tab PO DAILY Hormonal Agent 10/03/25
estradiol 20 mcg (21)-iron 75 mg
(7) tablet (Aurovela Fe 1-20 (28))
rosuvastatin 20 mg tablet 20 mg PO QPM High Cholesterol 10/03/25
therapeutic multivitamin 1 tab PO DAILY Supplement 10/03/25
ticagrelor 90 mg tablet (Brilinta) 90 mg PO BID Blood Clot 10/03/25
Prevention/Tx
tirzepatide 15 mg/0.5 mL 15 mg SC WE Weight Gain 10/03/25
subcutaneous pen injector
(Lidya)
NIH Stroke Score
Subsequent NIH Scale
Date of Subsequent NIH Scale: 10/03/25
Time of Subsequent NIH Scale: 12:30
NIH Stroke Score
Level of Consciousness: 0 - Alert
LOC Questions: 0-Answers both correctly
LOC Commands: 0-Performs both correctly
Best Horizontal Gaze: 0-Normal
Visual Quintanilla: 0=Normal, no visual loss
Facial Palsy: 0=Normal, symmetrical
Motor - Right Arm: 0=No drift 10 seconds
Motor - Left Arm: 0=No drift 10 seconds
Motor - Right Le-No drift 5 seconds
Motor - Left Le-No drift 5 seconds
Limb Ataxia: 0-Absent
Sensation: 1-Mild loss
Best Language: 0-No aphasia
Dysarthria: 0-Normal
Extinction and Inattention: 0-No abnormality
NIH Total Score:: 1
[2025-10-03] MEDS: TYLENOL 650 MG PO (14:30)
[2025-10-03 14:32] LABS: Troponin I 0.017 ng/ml
[2025-10-03 16:25] LABS: Troponin I 0.016 ng/ml
== END 2025-10-03 17:29 | disposition home or self-care (01) ==
LOC: EMR 10:46
PROVIDERS: Nurse Practitioner; CONSULT PHYSICIAN Internal Medicine Cardiovascular Disease; CONSULT PHYSICIAN Psychiatry & Neurology Neurology; EMERGENCY PHYSICIAN Emergency Medicine
DX: R07.89 Other chest pain (principal); R53.1 Weakness; E11.9 Type 2 diabetes mellitus without complications; E78.00 Pure hypercholesterolemia, unspecified; I25.10 Atherosclerotic heart disease of native coronary artery without angina pectoris; Z95.5 Presence of coronary angioplasty implant and graft; Z79.85 Long-term (current) use of injectable non-insulin antidiabetic drugs; Z79.84 Long term (current) use of oral hypoglycemic drugs; E66.9 Obesity, unspecified; I10 Essential (primary) hypertension; I25.2 Old myocardial infarction
CPT/HCPCS: 96374; 99284; 70496; 70498; 80053; 84484; 85025; 85610; 93005; 93308; Q9967

== ENCOUNTER → 2025-10-04 16:56 | Outpatient (REF) | payer OTHER, SELFPAY ==
[2025-10-04 17:39] LABS: D-Dimer 0.33 ug/mlFEU (0.00-0.50)
[2025-10-04 17:45] LABS: C-Reactive Protein < 5.00 mg/L (0.0-10.00)
== END ==
LOC: REG 16:56
PROVIDERS: ATTENDING PHYSICIAN Internal Medicine Cardiovascular Disease; FAMILY PHYSICIAN Family Medicine
DX: R07.89 Other chest pain (principal); R06.09 Other forms of dyspnea
CPT/HCPCS: 36415; 85379; 85652; 86140

== ENCOUNTER 2025-10-17 07:39 | Day surgery (SDC) | payer OTHER, SELFPAY ==
[2025-10-17] VITALS (13 sets, daily range): BP systolic 125–155; BP diastolic 69–87; BMI 31.1
[2025-10-17 08:38] LABS: Glucose - Point of Care 100 mg/dl (70-99)
--- NOTE | 2025-10-17 11:17 | ITS.CL.CATH ---
[facility] - Catheterization
Cardiac Catheterization
Procedure Report:
CARDIAC CATHETERIZATION REPORT
Date of Procedure: 10/17/2025
Referring: David Madison D.O.
Indication: Known coronary artery disease, persistent dyspnea on exertion and chest discomfort.
PROCEDURE:
1. Right heart catheterization.
2. Coronary angiography.
3. Left heart catheterization.
A total of 31 minutes of procedural/moderate sedation was utilized. An independent medical affairs leader was present to assist with and help manage the patient's level of consciousness and physiologic status.
ACCESS:
1. 6 [place] left common femoral artery using a modified Seldinger technique with a micropuncture under ultrasound guidance.
2. 5 [place] right common femoral vein using a modified Seldinger technique with a micropuncture kit under ultrasound guidance.
CATHETERS:
1. 5 [place] balloon wedge.
2. 5 [place] JL 4.
3. 5 [place] JR4.
HEMODYNAMIC DATA
Weight (kg): 86.1
AO (s/d/x, mmHg): 183/93/123
LV (s/x, mmHg): 183/17 (A wave to 27)
PCWP (a/v/x, mmHg): 32/28/18
PA (s/d/x, mmHg): 31/19/23
RV (s/x, mmHg): 41/6
RA (a/v/x, mmHg): 14/10/6
SVC SvO2 (%): 73.2
IVC SvO2 (%): Not obtained.
RA SvO2 (%): Not obtained.
RV SvO2 (%): Not obtained.
PA SvO2 (%): 68.6
SaO2 (%): 97.7
Hbg (g/dL): 10.4
ANTONINA
CO (L/min): 5.87
CI (L/min/m2): 3.04
Thermodilution
CO (L/min): Not performed.
CI (L/min/m2): Not performed.
TPG (mmHg): 5
PVR (Humphrey Units): 0.85
SVR (dynes*seconds*cm^-5): 1595
AVO2 Diff (Volume %): 4.12
Cardiac Power Output (yan): 1.6 (MAP * CO)/451 (normal 0.5 - 0.7; 0.4 - 0.6 in the elderly)
Cardiac Power Index (yan/m2): 0.83 (MAP * CI)/451
Aidee: 2 (PAs-PAd)/RA
AV gradient (x, mmHg): None.
AV area (cm2): Normal.
MV gradient (x, mmHg): Not obtained.
MV area (cm2): Not obtained
LEFT VENTRICULOGRAPHY: Not performed
AORTOGRAPHY: Not performed.
CORONARY ANGIOGRAPHY
Dominance: Right.
Left Main: Extremely short/cloacal, bifurcating vessel. There is no coronary artery disease.
LAD: Large size vessel giving rise to several small diagonals before wrapping around the apex. A patent stent is observed in the proximal vessel.
Ramus: Congenitally absent.
Circumflex: Normal size, nondominant vessel giving rise to 2 obtuse marginals. There is no coronary artery disease.
RCA: Normal size, dominant vessel. There is mild tapering of the ostium.
INTERVENTIONS
None.
Closure Device: 6 [place] Angio-Seal for the left common femoral artery, manual pressure for the right common femoral vein.
Radiation dose (mGy): 346
DAP (cm2.Gy): 19.7
Fluoroscopy time (minutes): 4.1
CONCLUSIONS:
1. Right dominant circulation with mild tapering of the RCA ostium and a patent stent in the proximal LAD, but no other occlusive coronary artery disease.
2. Mildly elevated filling pressures (LVEDP = 17 mmHg, PCWP = 18 mmHg at 86.1 kg) with evidence of diastolic dysfunction (A wave to 27 mmHg).
3. Mild pulmonic valve stenosis (peak to peak gradient = 10 mmHg).
4. Normal cardiac functional measurements (cardiac index = 3.04 L/min/m�, AVO2 difference = 4.12 volume%, cardiac power output = 1.6 W, Aidee = 2).
RECOMMENDATIONS:
1. Expectant management after cardiac catheterization via left common femoral arterial and right common femoral venous approach.
2. Limited weight bearing for one week.
3. OMT/GDMT as hemodynamics will tolerate. Start furosemide 20 mg daily for mild elevations in filling pressures. Start dapagliflozin 10 mg daily for evidence of diastolic dysfunction.
4. PFTs and VQ scan to evaluate for primary pulmonary disease as well as for evidence of chronic thromboembolic disease. Lack of pulmonary hypertension makes this diagnosis less likely.
5. If PFTs/VQ scan are negative, the likelihood of a diagnosis of deconditioning rises significantly and we would recommend diet lifestyle modification with slow introduction of exercise.
Copy to: Berny Tadeo D.O., TIMMY Porter
David Madison, , FACC, FACP
[2025-10-17] MEDS: TYLENOL 650 MG PO (14:12)
--- NOTE | 2025-10-17 15:00 | PTCARENOTE ---
at 1412 called ruby cheung to bedside for pt with 7/10 left groin pain. site assessed , pt without hematoma, bleeding or ecchomosis . 2 tylenol given per order and instructed to walk pt when she is ready. pt out of bed with some difficulty and
discomfort. walked to bathroom very slowly and sat on toilet w discomfort on left groion . pt walked better back to bed and was able to get dressed w some assistance. pt co of some discomfort on discharge on left side dr barth made aware. pt
without hematoma , bleeding or ecchomosis , and distal pulses palpable . pt states she is ready to go home . pt instructed to call or go to emergency room if pain gets worse or has any other problems.
--- NOTE | 2025-10-17 15:15 | PTCARENOTE ---
just informed by dr jennifer barth that the femoral artery was accessed on the left groin and NOT the right as was given in report from the rn cardiac cath room rn. and also the femoral vein was accessed on the right groin and NOT the left as was given in report
from the rn cardiac cath room rn . so previous documentation was incorrect in reguards to the artery and vein sites. dr barth aware .
== END 2025-10-17 14:50 | disposition home or self-care (01) ==
LOC: CATH 07:39
PROVIDERS: ATTENDING PHYSICIAN Internal Medicine Cardiovascular Disease; FAMILY PHYSICIAN Family Medicine
DX: I37.0 Nonrheumatic pulmonary valve stenosis (principal); Z95.5 Presence of coronary angioplasty implant and graft; I25.2 Old myocardial infarction; E11.9 Type 2 diabetes mellitus without complications; Z79.82 Long term (current) use of aspirin; Z79.899 Other long term (current) drug therapy; Z79.85 Long-term (current) use of injectable non-insulin antidiabetic drugs
CPT/HCPCS: 99152; 99153; 82962; 93460; C1760; C1769; C1894; Q9967